=== PATIENT | male | born 1935 | race Caucasian/White ===

== ENCOUNTER → 2021-11-05 14:36 | Outpatient (CLI) | payer OTHER, SELFPAY ==
--- NOTE | ~2021-11-05 | US_ITS ---
EXAMINATION: US soft tissue groin LT DATE: 11/05/2021 15:13 INDICATION: Left inguinal pain and swelling. TECHNIQUE: Grayscale and Doppler ultrasound images of the left groin soft tissues were obtained. COMPARISON: CT abdomen and pelvis 12/13/2009. FINDINGS: Prior imaging demonstrated bilateral fat-containing inguinal hernias. Today's examination t here is a somewhat tubular appearing structure with dirty shadowing in the left inguinal area, likely representing bowel. Some motion is present with Valsalva but no significant change in appearance. IMPRESSION: 1. Bowel containing left inguinal hernia. Reviewed, dictated and finalized at location K.
== END ==
PROVIDERS: PCP Student in an Organized Health Care Education/Training Program; Visit Provider Student in an Organized Health Care Education/Training Program
DX: K40.90 Unilateral inguinal hernia, without obstruction or gangrene, not specified as recurrent (principal); R22.42 Localized swelling, mass and lump, left lower limb; K44.9 Diaphragmatic hernia without obstruction or gangrene
CPT/HCPCS: 76882

== ENCOUNTER 2024-02-01 10:07 | Emergency (ER) | payer OTHER, SELFPAY ==
--- NOTE | 2024-02-01 10:10 | ED.SOB ---
HPI - SOB/Dyspnea General Chief Complaint: Dizziness Stated Complaint: Shortness Of Breath/Dizziness Time Seen by Provider: 02/01/24 10:10 Source: patient Mode of arrival: ambulatory Limitations: no limitations History of Present Illness HPI Narrative: Miguel is an 88-year-old male patient presenting to the clinic today with complaints of shortness of breath and dizziness times. He reports Related Data Home Medications Medication Instructions Recorded Confirmed aspirin 325 mg tablet 325 mg PO DAILY 06/03/19 10/13/19 calcium phosphate 250 mg-vit D3 tablet PO 06/03/19 10/13/19 12.5 mcg (500 unit) chewable tablet (Citracal-D3 Gummies) magnesium oxide 500 mg PO DAILY 06/03/19 10/13/19 glucosamine dong dipot-chond dong 1 cap PO DAILY 10/13/19 10/13/19 sod-C-Mn 500 mg-400 mg-66 mg-3 mg cap Allergies Allergy/AdvReac Type Severity Reaction Status Date / Time Penicillins Allergy Intermediate Hives / Verified 02/01/24 10:18 Red Face Sulfa (Sulfonamide Allergy Intermediate Hives / Verified 02/01/24 10:18 Antibiotics) Red Face Review of Systems Review of Systems: Pertinent positives per HPI. Patient denies any fever, chills, rash, headache, visual changes, dizziness, cough, shortness of breath, chest pain, palpitations, nausea, vomiting, diarrhea, constipation, abdominal pain, or any urinary issues. 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 There is no relevant family history pertinent to the patient complaint. Exam Narrative: General: Well-developed, well nourished, in no apparent distress Head: Normocephalic, atraumatic Eyes: Pupils equally round and reactive to light bilaterally, EOM intact, sclera and conjunctive clear, no discharge, lids normal Ears: TMs intact and clear, ear canals clear, no drainage, grossly hearing normal. Nose: Nares patent, no discharge, no inflammation, no sinus tenderness. Mouth: Oral pharynx without lesions or masses, good dentition, MMM. Neck: Supple, trachea midline, no enlargement of anterior or posterior cervical nodes, no thyroid masses or goiter palpable. Cardio: Regular rate and rhythm, s1 and s2 normal, no murmur appreciated. Resp: Clear to auscultation bilaterally, no rhonchi, rales, wheezing or rubs Course Course Emergency Course: Portions of this record may have been created with voice recognition software. Level of Care: Express Care Visit Vital Signs Vital signs: Vital signs reviewed MDM - SOB/Dyspnea MDM Narrative Medical decision making narrative: At the time of visit patient is resting comfortably on the exam table. Patient appears to be nontoxic. Supportive measures were discussed with the patient and they voiced understanding discharge instructions and agrees to treatment plan. Return precautions reviewed Discharge Plan Discharge Instructions: Antibiotic Form Prescriptions: No Action glucosam dong [id number] mg capsule 1 cap PO DAILY aspirin 325 mg tablet 325 mg PO DAILY calcium phosphate-vitamin D3 [Citracal-D3 Gummies] 250 mg calcium- 500 unit tablet,chewable PO magnesium oxide 500 mg tablet 500 mg PO D
[2024-02-01 10:23] VITALS: BP 165/80; PULSE 74; RESP 16; TEMP 36.4; O2SAT 99
--- NOTE | 2024-02-01 10:36 | ECG_ITS ---
Test Date: 2024-02-01 10:43:55 Measurements Intervals [place] Rate: 68 P: -1 FL: 208 QRS: -14 QRSD: 93 T: 145 QT: 360 QTc: 385 Interpretive Statements SINUS RHYTHM LEFT VENTRICULAR HYPERTROPHY AND ST-T CHANGE [VOLTAGE CRITERIA PLUS ST/T ABNORMALITY] ABNORMAL ECG No previous ECG available for comparison Electronically Signed On 02-01-2024 12:36:45 CDT by Willard Webb M.D.
--- NOTE | 2024-02-01 10:39 | ED.DIZZY ---
HPI - Dizziness General Chief Complaint: Dizziness Stated Complaint: Shortness Of Breath/Dizziness Time Seen by Provider: 02/01/24 10:10 Source: patient Mode of arrival: ambulatory Limitations: no limitations History of Present Illness HPI Narrative: Miguel is an 88 year old male patient presenting to the clinic today with c/o lightheadedness since he woke up this morning. He reports he has had two episodes similar to this over the last month. Reports he took ASA the other two times and his symptoms improved however he took ASA today and he still feels off. When asked to explain the lightheadedness he stated that he feels sluggish and slow to move. Denies room spinning or loss of balance. History of Aortic murmur/CAD- sees Dr. Mota. Reports some tightness across his chest. He denies shortness of breath. B/P 165/80 today. Works out daily for an hour and half at the [employer]. He is a nonsmoker. Related Data Home Medications Medication Instructions Recorded Confirmed aspirin 325 mg tablet 325 mg PO DAILY 06/03/19 10/13/19 calcium phosphate 250 mg-vit D3 tablet PO 06/03/19 10/13/19 12.5 mcg (500 unit) chewable tablet (Citracal-D3 Gummies) magnesium oxide 500 mg PO DAILY 06/03/19 10/13/19 glucosamine dong dipot-chond dong 1 cap PO DAILY 10/13/19 10/13/19 sod-C-Mn 500 mg-400 mg-66 mg-3 mg cap Allergies Allergy/AdvReac Type Severity Reaction Status Date / Time Penicillins Allergy Intermediate Hives / Verified 02/01/24 10:18 Red Face Sulfa (Sulfonamide Allergy Intermediate Hives / Verified 02/01/24 10:18 Antibiotics) Red Face Review of Systems Review of Systems: Pertinent positives per HPI. Patient denies any fever, chills, rash, headache, visual changes, cough, runny nose, sore throat, shortness of breath, chest pain, palpitations, nausea, vomiting, diarrhea, constipation, abdominal pain, or any urinary issues. 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 There is no relevant family history pertinent to the patient complaint. Exam Narrative: General: Well-developed, overweight, in no apparent distress Head: Normocephalic, atraumatic Eyes: Pupils equally round and reactive to light bilaterally, EOM intact, sclera and conjunctive clear, no discharge, lids normal Ears: TMs intact and clear, ear canals clear, no drainage, grossly hearing normal. Nose: Nares patent, no discharge, no inflammation, no sinus tenderness. Mouth: Oropharynx without lesions or masses, good dentition, MMM. Tongue midline, even rise and fall of uvula Neck: Supple, trachea midline, no enlargement of anterior or posterior cervical nodes, no thyroid masses or goiter palpable. No carotid bruits Cardio: Regular rate and rhythm, s1 and s2 normal, aortic systolic murmur grade 3/6 appreciated. Resp: Clear to auscultation bilaterally anteriorly and posteriorly, no rhonchi, rales, wheezing or rubs Musculoskeletal: No deformity, non-tender to palpation, grossly normal range of motion, muscle strength strong and equal, peripheral pulse strong, no edema, no cyanosis, normal gait and station Neuro: Alert and oriented x4 with normal speech, no focal deficits, cranial
[2024-02-01 10:48] VITALS: BP 147/77; PULSE 68
[2024-02-01 10:52] VITALS: BP 147/83; BP 156/86; PULSE 71
[2024-02-01 10:53] LABS: Glucose Point of Care 113 mg/dl (65-105)
[2024-02-01 10:55] LABS: EDUAAPPEAR Clear; EDUABILI Negative; EDUABLOOD Negative; EDUACOLOR1 Yellow; EDUAGLUCOSE Negative; EDUAKETONE Negative; EDUALEUKO Negative; EDUANITRATE Negative; EDUAPROTEIN Negative; EDUAUROBILI 0.2
== END 2024-02-01 11:03 | disposition home or self-care (01) ==
PROVIDERS: Emergency Provider Nurse Practitioner Family; PCP Student in an Organized Health Care Education/Training Program
DX: R42 Dizziness and giddiness (principal); R94.31 Abnormal electrocardiogram [ECG] [EKG]; I35.8 Other nonrheumatic aortic valve disorders; I25.10 Atherosclerotic heart disease of native coronary artery without angina pectoris; I10 Essential (primary) hypertension; E78.5 Hyperlipidemia, unspecified; Z85.46 Personal history of malignant neoplasm of prostate; Z95.1 Presence of aortocoronary bypass graft
CPT/HCPCS: 81003; 82948; 93005; 99213; G0463

== ENCOUNTER 2024-02-01 15:27 | Emergency (ER) | payer OTHER, SELFPAY ==
--- NOTE | ~2024-02-01 | XR_ITS ---
EXAMINATION: XR chest 2V Exam Date/Time: 02/01/2024 16:10 CDT HISTORY: cp Comparison: 10/07/2013. RESULT: Lines, tubes, and devices: Intact sternotomy wires. Surgical clips over the left inferior sternum. Lungs and pleura: Low volumes with crowding, otherwise clear. Cardiomediastinal silhouette: Stable. Other: No acute osseous or upper abdominal finding. IMPRESSION: No acute cardiopulmonary process. Reviewed, dictated and finalized at location K.
--- NOTE | ~2024-02-01 | CT_ITS ---
EXAMINATION: CT abdomen pelvis w con DATE: 02/01/2024 22:54 INDICATION: epigastric pain TECHNIQUE: Computed tomography (CT) of the abdomen and pelvis was performed with 100 mL Omnipaque-350 intravenous contrast. Automated exposure control and iterative reconstruction technique were employe d. The dose-length product was 834.14 mGy-cm. COMPARISON: 12/13/2009. FINDINGS: Lower thorax: Aortic valve and coronary artery calcification. Liver: Normal. Biliary/Gallbladder: Gallbladder is normal. No bile duct dilation. Pancreas: Moderate fatty atrophy. Spleen: Normal. Adrenals:No mass. Kidneys: No suspicious mass, obstructing stone, or hydronephrosis. GI tract: Mild distal esophageal and gastric wall edema. No small or large bowel dilation. Appendix n ot visualized. Diverticulosis without diverticulitis. Mesentery/Peritoneum: No ascites, mass, or free air. Retroperitoneum: No mass. Atherosclerotic abdominal aortic and/or arterial calcifications. Pelvis: Prostate seeds. Unremarkable urinary bladder. Soft Tissues: Moderate bilateral uncomplicated appearing fat-containing inguinal hernias. Smoothly ma rginated, 1.8 cm cystic collection in the right inguinal canal with associated calcification, likely chronic and of doubtful clinical significance. Bones: No acute osseous finding. Multilevel moderate-severe degenerative disc disease. Grade 1 anter olisthesis at L4-5. IMPRESSION: Mild esophagitis/gastritis. Otherwise, no acute abdominopelvic process detected. Reviewed, dictated and finalized at location K.
[2024-02-01 15:58] VITALS: BP 139/67; PULSE 73; RESP 16; TEMP 36.7; O2SAT 98
--- NOTE | 2024-02-01 15:58 | ECG_ITS ---
Test Date: 2024-02-01 16:04:18 Measurements Intervals [place] Rate: 71 P: 35 ID: 224 QRS: -18 QRSD: 97 T: 123 QT: 371 QTc: 405 Interpretive Statements SINUS RHYTHM WITH FIRST DEGREE AV BLOCK LEFT VENTRICULAR HYPERTROPHY AND ST-T CHANGE [VOLTAGE CRITERIA PLUS ST/T ABNORMALITY] Compared to ECG 02/01/2024 10:43:55 NO SIGNIFICANT CHANGES Electronically Signed On 02-02-2024 08:50:41 CDT by Indiana Nielsen M.D.
[2024-02-01 16:20] LABS: Basophils Percent Auto 0.5 % (0.2-1.2); Eosinophils Absolute Auto 0.2 K/mm3 (0-0.3); Eosinophils Percent Auto 2.6 % (0-4.4); Hemoglobin 14.4 g/dL (14.0-18.0); Immature Granulocyte Absolute 0.01 K/mm3 (0.00-0.031); Immature Granulocyte Percent A 0.2 % (0-0.5); Immature Platelet Fraction Pct 2.3 % (0.9-11.2); Lymphocytes Absolute Auto 2.15 K/mm3 (0.9-3.2); Lymphocytes Percent Auto 37.4 % (18.3-44.2); Mean Corpuscular HGB Conc 35.1 g/dl (32-36); Mean Corpuscular Hemoglobin 33.6 pg (26-34); Mean Corpuscular Volume 95.8 fl (80-100); Mean Platelet Volume 9.4 fl (7.4-10.4); Monocytes Absolute Auto 0.6 K/mm3 (0.1-0.6); Monocytes Percent Auto 10.4 % (2.6-8.5); Neutrophils Absolute Auto 2.8 K/mm3 (1.3-6.7); Neutrophils Percent Auto 48.9 % (45.5-73.1); Platelet Count Result 134 k/mm3 (150-375); Red Blood Count 4.28 M/mm3 (4.6-6.20); Red Cell Distribution Width 12.6 % (11.5-14.5); White Blood Count 5.8 K/mm3 (4.5-10.0)
[2024-02-01 16:29] LABS: Alanine Aminotransferase 20 U/L (6-50); Albumin Level 4.2 g/dL (3.5-5.1); Alkaline Phosphatase 43 U/L (38-126); Anion Gap 9 mmol/L (4-12); Aspartate Amino Transferase 29 U/L (17-59); Bilirubin,Total 0.7 mg/dL (0.2-1.3); Blood Urea Nitrogen 16 mg/dL (9-20); Calcium 9.1 mg/dL (8.4-10.2); Carbon Dioxide 27 mmol/L (22-30); Chloride 101 mmol/L (98-107); Estimated CRCL calculation 56 ml/min; Estimated Glomerular Filt Rate > 60; Glucose 106 mg/dL (65-110); Lipase 45 U/L (23-300); Potassium 4.1 mmol/L (3.4-5.0); Sodium 137 mmol/L (137-145)
[2024-02-01 16:31] LABS: INR 0.9
[2024-02-01 16:32] LABS: Partial Thromboplastin Time 29.2 Seconds (22.3-36.8)
--- NOTE | 2024-02-01 17:01 | ED.CHESTPAIN ---
HPI - Chest Pain General Chief Complaint: Chest Pain <Emma Powell APRN - Last Filed: 02/03/24 17:00> Stated Complaint: cp and chest pressure <Emma Powell APRN - Last Filed: 02/03/24 17:00> Time Seen by Provider: 02/01/24 17:01 <Emma Powell APRN - Last Filed: 02/03/24 17:00> Focused HPI: Pt is a 88-year-old male who presents to the ER with chest pain/pressure. He reports he woke up around 0200 and didn't feel right. Pt took an aspirin, which provided him with no relief. He walked at the [facility] this morning and did NOT have increased pain with exertion. He went to urgent care this morning where an EKG was performed. They reported no concerns with his EKG so they discharged him to home. He called his drosser who advised him to go to the ER. Pt continues to have chest discomfort. GENERAL: Well-appearing, well-nourished, and in no acute distress. HEAD: Normocephalic, atraumatic. CHEST: Clear to auscultation. ?No respiratory distress. HEART: Regular rate and rhythm.? NEURO: ?Alert and oriented x3. Patient screened in triage and initial orders placed.? ?Additional care and disposition to be based upon?diagnostic testing and treatment. <Emma Powell APRN - Last Filed: 02/03/24 17:00> Source: patient <Emma Powell APRN - Last Filed: 02/03/24 17:00> Mode of arrival: ambulatory <Emma Powell APRN - Last Filed: 02/03/24 17:00> Limitations: no limitations <Emma Powell APRN - Last Filed: 02/03/24 17:00> Related Data Home Medications: Home Medications Medication Instructions Recorded Confirmed aspirin 325 mg tablet 325 mg PO DAILY 06/03/19 10/13/19 calcium phosphate 250 mg-vit D3 tablet PO 06/03/19 10/13/19 12.5 mcg (500 unit) chewable tablet (Citracal-D3 Gummies) magnesium oxide 500 mg PO DAILY 06/03/19 10/13/19 glucosamine dong dipot-chond dong 1 cap PO DAILY 10/13/19 10/13/19 sod-C-Mn 500 mg-400 mg-66 mg-3 mg cap <Emma Powell APRN - Last Filed: 02/03/24 17:00> Allergies/Adverse Reactions: Allergies Allergy/AdvReac Type Severity Reaction Status Date / Time Penicillins Allergy Intermediate Hives / Verified 02/01/24 10:18 Red Face Sulfa (Sulfonamide Allergy Intermediate Hives / Verified 02/01/24 10:18 Antibiotics) Red Face <Emma Powell APRN - Last Filed: 02/03/24 17:00> [facility] Past Medical History Medical History: Medical History (Updated 02/03/24 @ 00:01 by Dio John) CAD (coronary artery disease) Follows with Dr Dasilva Essential (primary) hypertension Hyperlipidemia Prostate cancer 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 <Emma Powell APRN - Last Filed: 02/03/24 17:00> Surgical History Surgical History: Surgical History Hx of CABG (~2007) Hx of tonsillectomy (~1945) <Emma Powell APRN - Last Filed: 02/03/24 17:00> Family History Family History: Family History Other Family history of cardiovascular disease <Emma Powell APRN - Last Filed: 02/03/24 17:00> Social History Social History: Social History Smoking status: Never smoker Alcohol intake: current <Emma Powell APRN - Last Filed: 02/03/24 17:00> Course Vital Signs Vital signs: Vital Signs Temperature 36.7 C 02/01/24 15:58 Pulse Rate 73 02/01/24 15:58 Respiratory Rate 16 02/01/24 15:58 Blood Pressure 139/67 02/01/24 15:58 Pulse Oximetry 98 02/01/24 15:58 Oxygen Delivery Room Air 02/01/24 15:58 Temperature 36.7 C 02/01/24 22:00 Pulse Rate 70 02/02/24 00:05 Respiratory Rate 12 02/02/24 00:05 Blood Pressure 140/82 02/02/24 00:05 Pulse Oximetry 97 02/02/24 00:05 Oxygen Delivery Room Air 02/01/24 19:49 <Emma Hess
[2024-02-01 17:14] LABS: Troponin I < 0.012 ng/mL (0.000-0.034)
[2024-02-01 19:49] VITALS: O2SAT 98
[2024-02-01 20:00] VITALS: BP 161/89; PULSE 69; RESP 12; O2SAT 99
--- NOTE | 2024-02-01 20:11 | ECG_ITS ---
Test Date: 2024-02-01 20:11:59 Measurements Intervals [place] Rate: 68 P: 25 NE: 245 QRS: -12 QRSD: 92 T: 118 QT: 386 QTc: 412 Interpretive Statements SINUS RHYTHM WITH FIRST DEGREE AV BLOCK LEFT VENTRICULAR HYPERTROPHY AND ST-T CHANGE [VOLTAGE CRITERIA PLUS ST/T ABNORMALITY] Compared to ECG 02/01/2024 16:04:18 No significant changes Electronically Signed On 02-02-2024 14:42:16 CDT by Indiana Nielsen M.D.
--- NOTE | 2024-02-01 20:15 | PC.NURSE ---
spoke with pharmacy about unscannable component of gi cocktail and am holding medication until I receive communication from the pharmacist
[2024-02-01 20:19] LABS: Troponin I 0.017 ng/mL (0.000-0.034)
[2024-02-01] MEDS: BELLADONNA ALK/PHENOB ELIX 10 ML, MAG HYDROX/ALUMINUM HYD/SIMETH 30 ML, LIDOCAINE HCL 2... PO (20:46)
[2024-02-01 21:00] VITALS: BP 142/82; PULSE 73; RESP 16; TEMP 36.6; O2SAT 99
[2024-02-01 22:00] VITALS: BP 141/75; PULSE 71; RESP 14; TEMP 36.7; O2SAT 97
--- NOTE | 2024-02-01 22:09 | ECG_ITS ---
Test Date: 2024-02-01 22:09:26 Measurements Intervals [place] Rate: 68 P: 23 MS: 248 QRS: -15 QRSD: 94 T: 124 QT: 380 QTc: 407 Interpretive Statements SINUS RHYTHM WITH FIRST DEGREE AV BLOCK LEFT VENTRICULAR HYPERTROPHY AND ST-T CHANGE [VOLTAGE CRITERIA PLUS ST/T ABNORMALITY] Compared to ECG 02/01/2024 20:11:59 No significant changes Electronically Signed On 02-02-2024 14:42:21 CDT by Indiana Nielsen M.D.
[2024-02-01 22:31] LABS: Troponin I < 0.012 ng/mL (0.000-0.034)
[2024-02-01 22:51] VITALS: BP 144/83; PULSE 71; RESP 14; O2SAT 96
[2024-02-02] MEDS: PANTOPRAZOLE SODIUM IV 40 MG VIAL IV PUSH (00:03)
[2024-02-02 00:05] VITALS: BP 140/82; PULSE 70; RESP 12; O2SAT 97
== END 2024-02-02 00:08 | disposition home or self-care (01) ==
PROVIDERS: Emergency Medicine; Emergency Provider Emergency Medicine; PCP Student in an Organized Health Care Education/Training Program
DX: K20.90 Esophagitis, unspecified without bleeding (principal); R07.89 Other chest pain; I25.10 Atherosclerotic heart disease of native coronary artery without angina pectoris; I10 Essential (primary) hypertension; E78.5 Hyperlipidemia, unspecified; Z85.46 Personal history of malignant neoplasm of prostate; Z95.1 Presence of aortocoronary bypass graft; Z79.82 Long term (current) use of aspirin; Z79.899 Other long term (current) drug therapy; I44.0 Atrioventricular block, first degree; I51.7 Cardiomegaly
CPT/HCPCS: 36415; 71046; 74177; 80053; 81003; 82948; 83690; 84484; 85025; 85055; 85610; 85730; 93005; 96374; 99284; A9270; J2470; Q9967

== ENCOUNTER 2024-04-21 00:24 | Day surgery (SDC) | payer OTHER, SELFPAY ==
[2024-04-13 13:27] VITALS: BMI 31.8
[2024-04-21 11:35] VITALS: BP 140/81; PULSE 68; RESP 18; TEMP 36.7; O2SAT 98
[2024-04-21] MEDS: LACTATED RINGERS 1,000 ML 150 ML IV CONT (11:45)
--- NOTE | 2024-04-21 12:19 | PM.HPGS ---
History of Present Illness History of Present Illness Consent: Risks, benefits, and alternatives have been discussed and questions answered. Patient agrees to proceed with procedure. Chief complaint: epigastric pain, abn findings on diag imaging Narrative: Miguel Mclean is a 88 year old male with recent ER visit because chest pain, cardiac work up was negative, CT scan showed mild gastritis, he is doing ok now, denies gerd symptoms, he is not taking ppi, never had egd Review of Systems Review of Systems: All systems reviewed & are unremarkable except as noted in HPI and below PMFSH Past Medical History Medical History (Updated 03/16/24 @ 11:10 by Zunilda Dacosta, DUC-C) CAD (coronary artery disease) Follows with Dr Dasilva Diverticulosis Epigastric pain Essential (primary) hypertension Hyperlipidemia Prostate cancer 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 Surgical History Surgical History Hx of CABG (~2007) Hx of tonsillectomy (~1945) Family History Family History Other Family history of cardiovascular disease Social History Social History Smoking status: Never smoker Alcohol intake: current Drinks per week: 6 Alcohol use details: glass of wine or beer nightly Substance use: never Substance use type: does not use Living arrangements: with family Spiritual care concerns: No Meds Home Medications and Allergies Home Medications Medication Instructions Recorded Confirmed Type aspirin 325 mg tablet 325 mg PO DAILY 06/03/19 04/21/24 History calcium 250 mg (phosphate)-vit D3 250 tablet PO DAILY 06/03/19 04/21/24 History 12.5 mcg (500 unit) chewable tablet (Citracal-D3 Gummies) magnesium oxide 500 mg PO DAILY 06/03/19 04/21/24 History atorvastatin 10 mg tablet See Rx Instructions .Route 06/11/20 04/21/24 Rx .COMPLEX #90 tabs glucosamine 750 [id number]-[id number]-[id number] 1 tablet PO BID 03/16/24 04/21/24 History no1 644 mg-C 30 mg-adonay 1 mg tablet losartan 25 mg tablet 25 mg PO DAILY 03/16/24 04/21/24 History sildenafil 100 mg tablet 100 mg PO DAILY PRN Sexual Activity 03/16/24 04/21/24 History vitamins B1 B6 B12 tablet 10 tablet PO DAILY 03/16/24 04/21/24 History carvedilol 3.125 mg tablet 3.125 mg PO BID 04/13/24 04/21/24 History Allergies Allergy/AdvReac Type Severity Reaction Status Date / Time Penicillins Allergy Intermediate Hives / Verified 04/21/24 11:34 Red Face Sulfa (Sulfonamide Allergy Intermediate Hives / Verified 04/21/24 11:34 Antibiotics) Red Face Vital Signs Vital Signs - 24 hr 04/21/24 11:35 Temperature 98.0 F Pulse Rate 68 Respiratory Rate 18 Blood Pressure 140/81 Pulse Oximetry 98 Oxygen Delivery Room Air Exam Const: General: comfortable and no acute distress HENMT: Face/Nose/Sinus: Normal nares present Eyes: General: appearance normal, both eyes and all related structures Neck: Neck: no JVD Resp: Auscultation: clear to auscultation bilaterally Cardio: Rate: regular rate Rhythm: regular rhythm GI: Inspection: non-distended GI Palp: Yes Soft to palpation Skin: General skin exam: normal color Neuro: General: gait normal Speech: normal speech Extrem: General: normal to inspection Psych: Mental Status: mental status grossly normal Assessment and Plan Assessment and plan (1) Epigastric pain: Code(s): R10.13 - Epigastric pain Status: Acute Assessment and Plan: egd asymptomatic now
--- NOTE | 2024-04-21 12:22 | P.PNAN_ITS ---
Anes - Initial Pre Proc Eval Procedure: Operation Date: 04/21/24 14:30 Proposed Procedures p Esophagogastroduodenoscopy - Giacomo Paige MD Date/Time: 04/21/24 12:22 Surgeon: Giacomo Paige MD Pre Op Diagnosis: epigastric pain, abn findings on diag imaging Patient Data Age: 88 Gender: M Height: 1.63 m Weight: 81.7 kg Last Vital Signs Temp 36.7 C 04/21/24 11:35 Pulse 68 04/21/24 11:35 Resp 18 04/21/24 11:35 BP 140/81 04/21/24 11:35 Pulse Ox 98 04/21/24 11:35 O2 Del Method Room Air 04/21/24 11:35 Allergies Allergy/AdvReac Type Severity Reaction Status Date / Time Penicillins Allergy Intermediate Hives / Verified 04/21/24 11:34 Red Face Sulfa (Sulfonamide Allergy Intermediate Hives / Verified 04/21/24 11:34 Antibiotics) Red Face Home Medications Medication Instructions Recorded Confirmed Type aspirin 325 mg tablet 325 mg PO DAILY 06/03/19 04/21/24 History calcium 250 mg (phosphate)-vit D3 250 tablet PO DAILY 06/03/19 04/21/24 History 12.5 mcg (500 unit) chewable tablet (Citracal-D3 Gummies) magnesium oxide 500 mg PO DAILY 06/03/19 04/21/24 History atorvastatin 10 mg tablet See Rx Instructions .Route 06/11/20 04/21/24 Rx .COMPLEX #90 tabs glucosamine 750 [id number]-[id number] 1 tablet PO BID 03/16/24 04/21/24 History no1 644 mg-C 30 mg-adonay 1 mg tablet losartan 25 mg tablet 25 mg PO DAILY 03/16/24 04/21/24 History sildenafil 100 mg tablet 100 mg PO DAILY PRN Sexual Activity 03/16/24 04/21/24 History vitamins B1 B6 B12 tablet 10 tablet PO DAILY 03/16/24 04/21/24 History carvedilol 3.125 mg tablet 3.125 mg PO BID 04/13/24 04/21/24 History Patient hx anesthesia problems: none Family hx anesthesia problems: none Results Review: All pre-operative results and documents have been reviewed as part of the pre- operative evaluation. 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 Surgical History Surgical History Hx of CABG (~2008) Hx of tonsillectomy (~1945) Family History Family History Other Family history of cardiovascular disease Social History Social History Smoking status: Never smoker Alcohol intake: current Drinks per week: 6 Alcohol use details: glass of wine or beer nightly Substance use: never Substance use type: does not use Living arrangements: with family Spiritual care concerns: No Anes - Eval Final PreProcedure Day of Procedure 04/21/24 12:22 Patient weight: obese Heart: regular rate and rhythm Lungs: clear to auscultation Airway: Mallampati scale class II Neurological: alert and oriented Last oral intake: >/= 8 hours ASA classification: III Emergent: no Anesthetic plan: proceed Anesthesia type and monitoring: general GIVS Results Review: All pre-operative results and documents have been reviewed as part of the pre- operative evaluation. Informed Consent: The patient's anesthetic plan and its attendant risks and benefits were discussed with the patient/family/POA. Questions were solicited and answers provided to the satisfaction of the patient/family/POA.
[2024-04-21 12:34] VITALS: BP 114/70; PULSE 69; RESP 16; O2SAT 96
[2024-04-21 12:44] VITALS: BP 119/66; PULSE 69; RESP 18; O2SAT 98
[2024-04-21 12:54] VITALS: BP 139/68; PULSE 68; RESP 20; O2SAT 98
[2024-04-21 13:35] LABS: HPYLORIRESULT Negative (Negative)
== END 2024-04-21 13:10 | disposition home or self-care (01) ==
PROVIDERS: PCP Student in an Organized Health Care Education/Training Program; Referring Provider Nurse Practitioner Family; Visit Provider Internal Medicine Gastroenterology
PROC: 0DJ08ZZ Inspection of Upper Intestinal Tract, Via Natural or Artificial Opening Endoscopic (ICD-10-PCS; CPT 43235; principal; 2024-04-21 14:30)
DX: R93.3 Abnormal findings on diagnostic imaging of other parts of digestive tract (principal); K21.00 Gastro-esophageal reflux disease with esophagitis, without bleeding; I25.10 Atherosclerotic heart disease of native coronary artery without angina pectoris; I10 Essential (primary) hypertension; E78.5 Hyperlipidemia, unspecified; E66.9 Obesity, unspecified; Z68.30 Body mass index [BMI] 30.0-30.9, adult; Z79.82 Long term (current) use of aspirin; Z98.890 Other specified postprocedural states; Z95.1 Presence of aortocoronary bypass graft; Z87.19 Personal history of other diseases of the digestive system; Z85.46 Personal history of malignant neoplasm of prostate; Z86.79 Personal history of other diseases of the circulatory system; Z82.49 Family history of ischemic heart disease and other diseases of the circulatory system
CPT/HCPCS: 43239; 87081; 88305; J2704; J7120

== ENCOUNTER 2024-11-24 13:19 | Outpatient (CLI) | payer OTHER, SELFPAY ==
--- NOTE | ~2024-11-24 | PE_ITS ---
EXAMINATION: PET_PETPSMAST_PT DATE: 11/24/2024 15:17 INDICATION: Prostate cancer TECHNIQUE: 5.397 mCi of Illucix Ga-68([id number]) was administered i.v. Low dose computed shelia graphy (CT) images were acquired from the base of the brain to the base of the brain to the proximal thighs for attenuation correction and anatomic localization. Positron emission tomography (PET) image s were acquired in the same distribution beginning 80 minutes after injection. Images including fused PET/CT images were reconstructed in axial, coronal, and sagittal planes. Automated exposure control technique was employed. The dose-length product was 975.63mGy-cm. COMPARISON: CT dated 02/01/2024 FINDINGS: Head/neck: Typical pattern of symmetric physiologic increased activity in the lacrimal, parotid and submandibula r glands as well as along the mucosa of the nasal and oral cavities, pharynx and hypopharynx. No path ologically enlarged cervical lymphadenopathy or suspicious foci of increased uptake in the visualized head or neck. Chest: Small lung volumes with mild bibasilar atelectasis. Small calcified nodules in the left upper lobe co nsistent with old granulomatous disease. No suspicious pulmonary nodules, pneumonia or pleural effusi on. Heart size normal. Atherosclerotic coronary artery calcifications. Median sternotomy wires. Aorti c valve calcification. No pericardial effusion. Thoracic aorta is normal in caliber. No pathologicall y enlarged or PSMA avid thoracic lymphadenopathy. Abdomen/pelvis/proximal thighs: Physiologic renal accumulation and excretion of activity in the kidneys, bladder and along portions o f ureters. Numerous brachytherapy seeds at the prostate. There is an approximately 1 cm focus of jas ed uptake at the superior right posterolateral aspect of the prostate with maximal SUV of 56.6 which is significantly higher than that of the excreted activity within the bladder where the maximal SUV i s 15.6] consistent with locally recurrent prostate cancer. Normal degree and slightly heterogenous pa ttern of increased uptake throughout the liver and spleen without radiologic correlate or dominant PS MA avid lesion. The gallbladder, pancreas and bilateral adrenal glands are normal. Moderate uptake sc attered throughout the bowels with typical duodenal and proximal jejunal predominance and without rad iologic correlate, also likely physiologic. Small bilateral fat-containing inguinal hernias, also con taining a minimal amount of fluid on the right. No other abnormal foci of increased uptake or patholo gically enlarged lymphadenopathy in the abdomen, pelvis or proximal thighs. Musculoskeletal: Severe spondylosis of the cervical, thoracic and lumbar spine. There are few chronic appearing compre ssion fractures in the mid to lower thoracic spine. No suspicious lytic, blastic or abnormally PSMA a vid bone lesions. IMPRESSION: 1. Multiple brachytherapy seeds in the prostate with small region of marked increased activity at the superior right posterolateral aspect of the prostate consistent with locally recurrent disease. No o ther more remote metastatic disease. Reviewed, dictated and finalized at location A. IMPRESSION: 1. Multiple brachytherapy seeds in the prostate with small region of marked inc reased activity at the superior right posterolateral aspect of the prostate con sistent with locally recurrent disease. No other more remote metastatic disease .
--- OUTSIDE RECORDS SUMMARY | 2024-11-24 13:59 | XMS_ITS | Encounter Summary ---
Author Organization [employer] [facility] Address 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 Fortunato Farrar MD [address] [place] [phone] Coronary Atherosclerosis of [place] Coronary Artery; Old Myocardial Infarction; Unspecified Essential Hypertension; Dyspepsia and Other Specified Disorders of Function of Stomach; Personal History of Other Malignant Neoplasm of Skin Social History Tobacco Use Types Packs/Day Years Used Date Smoking Tobacco: Never Assessed Sex and Gender Information Value Date Recorded Sex Assigned at Not on file 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 Gender Identity Not on file Sexual Orientation Not on file documented as of this encounter Plan of Treatment Not on file documented as of this encounter Procedures Procedure Name Priority Date/Time Associated Diagnosis Comments BASIC METABOLIC PANEL Timed Study 09/12/2007 6:34 AM CDT XR CHEST PA AND LATERAL 2 VW Routine 09/12/2007 5:15 AM CDT POC GLUCOSE Routine 09/11/2007 9:56 PM CDT POC GLUCOSE Routine 09/11/2007 4:49 PM CDT POC GLUCOSE Routine 09/11/2007 11:57 AM CDT POC GLUCOSE Routine 09/11/2007 7:02 AM CDT CBC WITH DIFFERENTIAL Routine 09/11/2007 5:02 AM CDT MAGNESIUM LEVEL Routine 09/11/2007 5:02 AM CDT BASIC METABOLIC PANEL Routine 09/11/2007 5:02 AM CDT POC GLUCOSE Routine 09/10/2007 8:07 PM CDT POC GLUCOSE Routine 09/10/2007 5:03 PM CDT POC GLUCOSE Routine 09/10/2007 11:19 AM CDT POC GLUCOSE Routine 09/10/2007 8:02 AM CDT XR CHEST PA OR AP 1 VW Stat 09/10/2007 7:30 AM CDT POC GLUCOSE Routine 09/10/2007 6:10 AM CDT XR CHEST PA OR AP 1 VW Timed Study 09/10/2007 5:20 AM CDT POC GLUCOSE Routine 09/10/2007 4:40 AM CDT CVR ONLY, CKMB/CK Timed Study 09/10/2007 4:3 0 AM CDT PT AND APTT Routine 09/10/2007 4:30 AM CDT CBC WITH DIFFERENTIAL Routine 09/10/2007 4:30 AM CDT COMPREHENSIVE METABOLIC PANEL Routine 09/10/2007 4:30 AM CDT POC GLUCOSE Routine 09/10/2007 3:43 AM CDT POC GLUCOSE Routine 09/10/2007 1:43 AM CDT POC GLUCOSE Routine 09/09/2007 11:53 PM CDT CVR ONLY, CKMB/CK Timed Study 09/09/2007 11: 00 PM CDT POC GLUCOSE Routine 09/09/2007 10:21 PM CDT POC GLUCOSE Routine 09/09/2007 9:01 PM CDT POC GLUCOSE Routine 09/09/2007 8:13 PM CDT POC GLUCOSE Routine 09/09/2007 6:58 PM CDT POC GLUCOSE Routine 09/09/2007 6:11 PM CDT POC GLUCOSE Routine 09/09/2007 5:05 PM CDT POC GLUCOSE Routine 09/09/2007 4:08 PM CDT POC GLUCOSE Routine 09/09/2007 3:09 PM CDT POTASSIUM LEVEL Timed Study 09/09/2007 3:03 PM CDT POC, BLOOD GASES Routine 09/09/2007 1:33 PM CDT POC GLUCOSE Routine 09/09/2007 12:09 PM CDT POC, BLOOD GASES Routine 09/09/2007 11:5 4 AM CDT CVR ONLY, CKMB/CK Stat 09/09/2007 11: 42 AM CDT PT AND APTT Stat 09/09/2007 11:42 AM CDT CBC WITH DIFFERENTIAL Stat 09/09/2007 11:42 AM CDT MAGNESIUM LEVEL Stat 09/09/2007 11:42 AM CDT BASIC METABOLIC PANEL Stat 09/09/2007 11:42 AM CDT XR CHEST PA OR AP 1 VW Stat 09/09/2007 11:40 AM CDT POC, BLOOD GASES Routine 09/09/2007 10:4 7 AM CDT POC, BLOOD GASES Routine 09/09/2007 10:2 2 AM CDT POC, BLOOD GASES Routine 09/09/2007 9:53 AM CDT POC, BLOOD GASES Routine 09/09/2007 9:27 AM CDT POC, BLOOD GASES Routine 09/09/2007 9:23 AM CDT XR CHEST PA AND LATERAL 2 VW Pre-Operative 09/03/2007 10:24 AM CDT PT AND APTT Routine 09/03/2007 10:05 AM CDT CBC WITH DIFFERENTIAL Routine 09/03/2007 10:05 AM CDT COMPREHENSIVE METABOLIC PANEL Routine 09/03/2007 10:05 AM CDT URINALYSIS WITH REFLEX CULTURE Routine 09/03/2007 9:48 AM CDT URINALYSIS W/REFLEX MICROSCOPIC Routine 09/03/2007 9:48 AM CDT documented in this encounter Results * (ABNORMAL) BASIC METABOLIC PANEL (09/12/2007 6:34 AM CDT) [facility] Signature CO2 26 22 - 30 mmol/L [facility] CREATININE 0.84 0.67 - 1.17 mg/dL [facility] POTASSIUM 4.1 3.5 - 4.9 mmol/L [facility] BUN 16 6 - 20 mg/dL [facility] CHLORIDE 102 96 - 108 mmol/L [facility] GLUCOSE 115(H) 65 - 99 mg/dL [facility] SODIUM 136 135 - 145 mmol/L [facility] CALCIUM 7.7(L) 8.4 - 10.2 mg/dL [facility] GFR, >60 >=60 mL/min/1. 7 sq meter [facility] GFR >60 >=60 mL/min/1. 7 sq meter [facility] Comment: Estimated GFR rate interpretative information for both Americans and non- Americans is available on the [facility] Intranet at: [email or web address] Select: Lab Policies and Procedures Select: Reference Ranges - GFR Blood specimen (specimen) 09/12/2007 6:34 AM CDT 09/12/2007 6:39 AM CDT Jon Yonug Jr., MD CHEMISTRY ORDERABLES Ed ited [facility] [address] [place] [address] * XR CHEST PA AND LATERAL (09/12/2007 5:15 AM CDT) Anatomical Region Laterality Modality Chest Other 09/12/2007 5:15 AM CDT Narrative 09/12/2007 10:18 AM CDT [facility] [place], [place] [address] [place], [place] [address] Admit Date: 09/09/2007 FRANCIS LINDA Sex: M Admit Prov: FORTUNATO FARRAR Date: 1935 Primary Care Prov: CMRN: [id number] Room: [address] [place] [address] SSN: [id number] IMAGING SERVICES Ordering Prov: N/A Accession Number: [id number] Interpretation CHEST 2 VIEWS, 09/12/2007 Comparison: 09/10/2007 History: Status post CABG, chest tube removed. Findings: PA and lateral views of the chest demonstrate minor residual bibasilar atelectasis and small left pleural effusion. The upper lung zones are clear. There is no pneumothorax seen. Impression: Small left pleural effusion and left basilar infiltrate versus atelectasis. Postoperative changes. . Dictated by: LAZARA HARVEY 09/12/2007 05:33 Electronically signed by: LAZARA HARVEY 09/12/2007 10:18 Transcribed: 09/12/2007 08:25 SJ Procedure Note Lazara Harvey - 09/12/2007 [facility] [place], [place] [address], [place] [address] Admit Date: 09/09/2007 ROGER LINDAMARY Ray Sex: M Admit Prov: FORTUNATO FARRAR Date: 1935 Primary Care Prov: CMRN: [id number] Room: [address] [place] [address] SSN: [id number] IMAGING SERVICES Ordering Prov: N/A Interpretation CHEST 2 VIEWS, 09/12/2007 Comparison: 09/10/2007 History: Status post CABG, chest tube removed. Findings: PA and lateral views of the chest demonstrate minorresidual bibasilar atelectasis and small left pleural effusion. The upper lungzones are clear. There is no pneumothorax seen. Impression: Small left pleural effusion and left basilar infiltrate versusatelectasis. Postoperative changes. . Dictated by: LAZARA HARVEY 09/12/2007 05:33 Electronically signed by: LAZARA HARVEY 09/12/2007 10:18 Transcribed: 09/12/2007 08:25 SJ Fortunato Farrar MD DIAGNOSTIC IMAGING ORDERABLES Final Result * (ABNORMAL) POC GLUCOSE (09/11/2007 9:56 PM CDT) GLUCOSE POC 160(H) 65 - 99 mg/dL [facility] Venous blood specimen (specimen) 09/11/2007 9:56 PM CDT 09/11/2007 9:56 PM CDT Fortunato Farrar MD POINT OF CARE TESTING Final Re sult Performing Organization Address City/State/[facility] Co de Phone Number [facility] [address] [place] [address] * (ABNORMAL) POC GLUCOSE (09/11/2007 4:49 PM CDT) GLUCOSE POC 131(H) 65 - 99 mg/dL [facility] Venous blood specimen (specimen) 09/11/2007 4:49 PM CDT 09/11/2007 4:49 PM CDT us Fortunato Farrar MD POINT OF CARE TESTING Final Re sult Performing Organization Address [facility] Co de Phone Number [facility] [address] [place] [address] * (ABNORMAL) POC GLUCOSE (09/11/2007 11:57 AM CDT) GLUCOSE POC 140(H) 65 - 99 mg/dL [facility] Venous blood specimen (specimen) 09/11/2007 11:57 AM CDT 09/11/2007 11:57 AM CDT us Fortunato Farrar MD POINT OF CARE TESTING Final Re sult Performing Organization Address [facility] Co de Phone Number [facility] [address] [place] [address] * (ABNORMAL) POC GLUCOSE (09/11/2007 7:02 AM CDT) GLUCOSE POC 148(H) 65 - 99 mg/dL [facility] Venous blood specimen (specimen) 09/11/2007 7:02 AM CDT 09/11/2007 7:02 AM CDT us Fortunato Farrar MD POINT OF CARE TESTING Final Re sult Performing Organization Address [facility]/ZIP Co de Phone Number [facility] [address] [place] [address] * (ABNORMAL) BASIC METABOLIC PANEL (09/11/2007 5:02 AM CDT) BUN 18 6 - 20 mg/dL [facility] CHLORIDE 102 96 - 108 mmol/L [facility] GLUCOSE 127(H) 65 - 99 mg/dL [facility] SODIUM 134(L) 135 - 145 mmol/L [facility] CALCIUM 7.9(L) 8.4 - 10.2 mg/dL [facility] CO2 25 22 - 30 mmol/L [facility] CREATININE 1.00 0.67 - 1.17 mg/dL [facility] POTASSIUM 4.1 3.5 - 4.9 mmol/L [facility] GFR, >60 >=60 mL/min/1. 7 sq meter [facility] GFR >60 >=60 mL/min/1. 7 sq meter [facility] Comment: Estimated GFR rate interpretative information for both Americans and non- Americans is available on the [facility] Intranet at: [email or web address] Select: Lab Policies and Procedures Select: Reference Ranges - GFR Blood specimen (specimen) 09/11/2007 5:02 AM CDT 09/11/2007 5:22 AM CDT us Fortunato Farrar MD CHEMISTRY ORDERABLES Edited [facility] [address] [place] [address] * MAGNESIUM LEVEL (09/11/2007 5:02 AM CDT) MAGNESIUM 2.1 1.5 - 2.5 mg/dL [facility] Blood specimen (specimen) 09/11/2007 5:02 AM CDT 09/11/2007 5:22 AM CDT us Fortunato Farrar MD CHEMISTRY ORDERABLES Final Res ult [facility] [address] [place] [address] * (ABNORMAL) CBC WITH DIFFERENTIAL (09/11/2007 5:02 AM CDT) HEMATOCRIT 36.1(L) 40.0 - 48.0 % [facility] RDW-STDEV 45.7 37.1 - 48.7 fL [facility] RBC 3.86(L) 4.50 - 5.40 M/uL [facility] MCHC 33.8 31.5 - 35.5 % [facility] MCV 93.5 82.0 - 99.0 fL [facility] PLATELETS 90(L) 140 - 350 K/uL [facility] HEMOGLOBIN 12.2(L) 13.6 - 16.5 g/dL [facility] RDW 13.5 11.5 - 14.5 % [facility] WBC 10.8(H) 4.0 - 9.8 K/uL [facility] MCH 31.6 27.2 - 32.6 pg [facility] MPV 9.9 9.3 - 12.4 fL [facility] NEUTROPHILS 73(H) 45 - 70 % [facility] NEUTROPHIL ABSOLUTE 7.93(H) 1.90 - 7.00 K/uL [facility] EOSINOPHILS 0 0 - 7 % [facility] EOSINOPHIL ABSOLUTE 0.03 0.00 - 0.70 K/uL [facility] LYMPHOCYTES 16 16 - 45 % [facility] LYMPHOCYTE ABSOLUTE 1.68 0.70 - 4.50 K/uL [facility] BASOPHILS 0 0 - 2 % [facility] BASOPHILS ABSOLUTE 0.02 0.00 - 0.20 K/uL [facility] MONOCYTES 11 3 - 13 % [facility] MONOCYTE ABSOLUTE 1.18 0.10 - 1.30 K/uL [facility] Blood specimen (specimen) 09/11/2007 5:02 AM CDT 09/11/2007 5:22 AM CDT us Fortnuato Farrar MD HEMATOLOGY ORDERABLES Edited Performing Organization Address City/[facility] Co de Phone Number INTERFACE SYSTEM Refer to clinic/hospital department [facility] [address] [place] [address] * (ABNORMAL) POC GLUCOSE (09/10/2007 8:07 PM CDT) GLUCOSE POC 155(H) 65 - 99 mg/dL [facility] Venous blood specimen (specimen) 09/10/2007 8:07 PM CDT 09/10/2007 8:07 PM CDT us Fortunato Farrar MD POINT OF CARE TESTING Final Re sult Performing Organization Address [facility] Co de Phone Number [facility] [address] [place] [address] * (ABNORMAL) POC GLUCOSE (09/10/2007 5:03 PM CDT) GLUCOSE POC 140(H) 65 - 99 mg/dL [facility] Venous blood specimen (specimen) 09/10/2007 5:03 PM CDT 09/10/2007 5:03 PM CDT us Fortunato Farrar MD POINT OF CARE TESTING Final Re sult Performing Organization Address City/[facility] Co de Phone Number [facility] [address] [place] [address] * (ABNORMAL) POC GLUCOSE (09/10/2007 11:19 AM CDT) GLUCOSE POC 140(H) 65 - 99 mg/dL [facility] Venous blood specimen (specimen) 09/10/2007 11:19 AM CDT 09/10/2007 11:19 AM CDT us Fortunato Farrar MD POINT OF CARE TESTING Final Re sult Performing Organization Address [facility] Co de Phone Number [facility] [address] [place] [address] * (ABNORMAL) POC GLUCOSE (09/10/2007 8:02 AM CDT) GLUCOSE POC 133(H) 65 - 99 mg/dL [facility] Venous blood specimen (specimen) 09/10/2007 8:02 AM CDT 09/10/2007 8:02 AM CDT us Fortunato Farrar MD POINT OF CARE TESTING Final Re sult Performing Organization Address City/[facility] Co de Phone Number [facility] [address] [place] [address] * XR CHEST PA OR AP (09/10/2007 7:30 AM CDT) Anatomical Region Laterality Modality Chest Other 09/10/2007 7:30 AM CDT Narrative 09/10/2007 12:33 PM CDT [facility] [place], [place] [address] [place], [place] [address] Admit Date: 09/09/2007 FRANCIS LINDA Sex: M Admit Prov: FORTUNATO FARRAR Date: 1935 Primary Care Prov: CMRN: [id number] Room: [address] [place] [address] SSN: [id number] IMAGING SERVICES Ordering Prov: N/A Accession Number: [id number] Interpretation PORTABLE AP UPRIGHT CHEST OF 0740 HOURS, 09/10/2007 History: Coronary artery disease. Findings: Since the previous examination of September 09 earlier, the Sutter-Rachelle catheter has been removed. The left chest tube remains unchanged and in expected position. There is no pneumothorax. The left lung is better aerated with mild residual left basilar atelectasis. No pneumothorax is seen. The heart size is mildly enlarged. Opinion: Interval improvement. . Dictated by: JENNIFER SCHWAB 09/10/2007 08:40 Electronically signed by: JENNIFER SCHWAB 09/10/2007 12:33 Transcribed: 09/10/2007 11:32 SMM Procedure Note Jennifer Schwab MD - 09/10/[address] [address] Admit Date: 09/09/2007 FRANCIS LINDA Sex: M Admit Prov: FORTUNATO FARRAR Date: 1935 Primary Care Prov: CMRN: [id number] Room: [address] [place] [address] SSN: [id number] IMAGING SERVICES Ordering Prov: N/A Interpretation PORTABLE AP UPRIGHT CHEST OF 0740 HOURS, 09/10/2007 History: Coronary artery disease. Findings: Since the previous examination of September 09 earlier, theSwan-Rachelle catheter has been removed. The left chest tube remains unchanged andin expected position. There is no pneumothorax. The left lung isbetter aerated with mild residual left basilar atelectasis. No pneumothoraxis seen. The heart size is mildly enlarged. Opinion: Interval improvement. . Dictated by: JENNIFER SCHWAB 09/10/2007 08:40 Electronically signed by: JENNIFER SCHWAB 09/10/2007 12:33 Transcribed: 09/10/2007 11:32 SMM Fortunato Farrar MD DIAGNOSTIC IMAGING ORDERABLES Final Result * (ABNORMAL) POC GLUCOSE (09/10/2007 6:10 AM CDT) GLUCOSE POC 133(H) 65 - 99 mg/dL [facility] Venous blood specimen (specimen) 09/10/2007 6:10 AM CDT 09/10/2007 6:10 AM CDT Fortunato Farrar MD POINT OF CARE TESTING Final Re sult [facility] [address] [place] [address] * XR CHEST PA OR AP (09/10/2007 5:20 AM CDT) Anatomical Region Laterality Modality Chest Other 09/10/2007 5:20 AM CDT Narrative 09/10/2007 11:03 AM CDT [facility] [place] [place] [address] [place], [place] [address] Admit Date: 09/09/2007 FRANCIS LINDA Sex: M Admit Prov: FORTUNATO FARRAR Date: 1935 Primary Care Prov: CMRN: [id number] Room: [address] [place] [address] SSN: [id number] IMAGING SERVICES Ordering Prov: N/A Accession Number: [id number] Interpretation Clinical Indication: 71-year-old man status post CABG. REPORT: BEDSIDE PORTABLE CHEST RADIOGRAPH, 09/10/2007 AT 0520 HOURS Comparisons: 09/09/07 at 1150 hours. Findings: Since the prior exam, endotracheal tube and nasogastric tube have been removed. Sutter-Rachelle catheter terminates within the right lower lobe pulmonary artery outflow tract. Mediastinal drains and left chest tube are stable. No pneumothorax is seen. Left basilar atelectasis or infiltrate is again noted and appears slightly worse. The cardiomediastinal silhouette is stable in size. There is atherosclerosis of the aorta. Minimal right basilar subsegmental atelectasis is seen. Lung volumes are slightly decreased from the prior exam. Impression: 1. Interval removal of endotracheal tube and nasogastric tube. 2. Increasing bibasilar subsegmental atelectasis or infiltrate, (left greater than right). . Dictated by: DAVID CARLSON 09/10/2007 07:51 Electronically signed by: DAVID CARLSON 09/10/2007 11:03 Transcribed: 09/10/2007 10:59 SMM Procedure Note Provider, Historical - 09/10/2007 [facility] [place], [place] [address] [place], [place] [address] Admit Date: 09/09/2007 ROGER LINDAMARY Ray Sex: M Admit Prov: JDFORTUNATO CLAYTON Date: 1935 Primary Care Prov: CMRN: [id number] Room: [address] [place] [address] SSN: [id number] IMAGING SERVICES Ordering Prov: N/A Interpretation Clinical Indication: 71-year-old man status post CABG. REPORT: BEDSIDE PORTABLE CHEST RADIOGRAPH, 09/10/2007 AT 0520 HOURS Comparisons: 09/09/07 at 1150 hours. Findings: Since the prior exam, endotracheal tube and nasogastrictube have been removed. Sutter-Rachelle catheter terminates within the right lowerlobe pulmonary artery outflow tract. Mediastinal drains and left chesttube are stable. No pneumothorax is seen. Left basilar atelectasis orinfiltrate is again noted and appears slightly worse. The cardiomediastinalsilhouette is stable in size. There is atherosclerosis of the aorta. Minimalright basilar subsegmental atelectasis is seen. Lung volumes are slightly decreased from the prior exam. Impression: 1. Interval removal of endotracheal tube and nasogastric tube. 2. Increasing bibasilar subsegmental atelectasis or infiltrate,(left greater than right). . Dictated by: DAVID CARLSON 09/10/2007 07:51 Electronically signed by: DAVID CARLSON 09/10/2007 11:03 Transcribed: 09/10/2007 10:59 SMM Fortunato Farrar MD DIAGNOSTIC IMAGING ORDERABLES Final Result * (ABNORMAL) POC GLUCOSE (09/10/2007 4:40 AM CDT) GLUCOSE POC 104(H) 65 - 99 mg/dL [facility] Venous blood specimen (specimen) 09/10/2007 4:40 AM CDT 09/10/2007 4:40 AM CDT Fortunato Farrar MD POINT OF CARE TESTING Final Re sult [facility] [address] [place] [address] * (ABNORMAL) PT AND APTT (09/10/2007 4:30 AM CDT) PTT 32.1 24.4 - 36.4 Seconds [facility] Comment: PTT Therapeutic Range: Heparin Level PTT (seconds) <0.10 units/mL <53 0.10 - 0.30 units/mL 53 - 67 0.30 - 0.70 units/mL* 67 - 95* 0.70 - 1.00 units/mL 95 - 116 *corresponds to therapeutic range for unfractionated heparin PROTIME 14.9 12.7 - 15.1 Seconds [facility] INR 1.2(H) 0.9 - 1.1 [facility] Comment: INR Therapeutic Range: Adult: 2.0 - 3.0 for pulmonary embolism or prophylaxis against venous thrombosis or systemic embolization. 2.0 - 3.0 for patients with tissue heart valves. 2.5 - 3.5 for patients with mechanical heart valves or post [place]. Pediatric (12 years and under): 1.5 - 3.0 Although the target range in children is not well established, INR values of 1.5 - 3.0 are recommended for most patients. Higher values have been used in children with prosthetic cardiac valves and hereditary clotting disorders. (<3 days) therapeutic ranges have not been established. Blood specimen (specimen) 09/10/2007 4:30 AM CDT 09/10/2007 4:41 AM CDT Fortunato Farrar MD HEMATOLOGY ORDERABLES Edited Performing Organization Address [facility]/ZIP Co de Phone Number [facility] [address] [place] [address] * (ABNORMAL) CBC WITH DIFFERENTIAL (09/10/2007 4:30 AM CDT) MCH 31.5 27.2 - 32.6 pg [facility] MPV 9.6 9.3 - 12.4 fL [facility] HEMATOCRIT 38.4(L) 40.0 - 48.0 % [facility] RDW-STDEV 44.6 37.1 - 48.7 fL [facility] RBC 4.16(L) 4.50 - 5.40 M/uL [facility] MCHC 34.1 31.5 - 35.5 % [facility] MCV 92.3 82.0 - 99.0 fL [facility] PLATELETS 96(L) 140 - 350 K/uL [facility] HEMOGLOBIN 13.1(L) 13.6 - 16.5 g/dL [facility] RDW 13.5 11.5 - 14.5 % [facility] WBC 10.7(H) 4.0 - 9.8 K/uL [facility] NEUTROPHILS 74(H) 45 - 70 % [facility] NEUTROPHIL ABSOLUTE 7.92(H) 1.90 - 7.00 K/uL [facility] EOSINOPHILS 0 0 - 7 % [facility] EOSINOPHIL ABSOLUTE 0.00 0.00 - 0.70 K/uL [facility] LYMPHOCYTES 14(L) 16 - 45 % [facility] LYMPHOCYTE ABSOLUTE 1.49 0.70 - 4.50 K/uL [facility] BASOPHILS 0 0 - 2 % [facility] BASOPHILS ABSOLUTE 0.01 0.00 - 0.20 K/uL [facility] MONOCYTES 12 3 - 13 % [facility] MONOCYTE ABSOLUTE 1.28 0.10 - 1.30 K/uL [facility] Blood specimen (specimen) 09/10/2007 4:30 AM CDT 09/10/2007 4:41 AM CDT us Fortunato Farrar MD HEMATOLOGY ORDERABLES Edited INTERFACE SYSTEM Refer to clinic/hospital department [facility] [id number] [place] [id number] * (ABNORMAL) COMPREHENSIVE METABOLIC PANEL (09/10/2007 4:30 AM CDT) CALCIUM 7.4(L) 8.4 - 10.2 mg/dL [facility] ALBUMIN 3.1(L) 3.4 - 4.8 g/dL [facility] CHLORIDE 108 96 - 108 mmol/L [facility] CREATININE 0.91 0.67 - 1.17 mg/dL [facility] ALT 22 0 - 41 U/L [facility] SODIUM 138 135 - 145 mmol/L [facility] ALKALINE PHOSPHATASE 27(L) 40 - 129 U/L [facility] CO2 28 22 - 30 mmol/L [facility] BILIRUBIN TOTAL 0.6 0.2 - 1.0 mg/dL [facility] POTASSIUM 4.0 3.5 - 4.9 mmol/L [facility] TOTAL PROTEIN 4.9(L) 6.3 - 8.6 g/dL [facility] GLUCOSE 113(H) 65 - 99 mg/dL [facility] AST 41(H) 12 - 38 U/L [facility] BUN 15 6 - 20 mg/dL [facility] GFR, >60 >=60 mL/min/1. 7 sq meter [facility] GFR >60 >=60 mL/min/1. 7 sq meter [facility] Comment: Estimated GFR rate interpretative information for both Americans and non- Americans is available on the [facility] Intranet at: [email or web address] Select: Lab Policies and Procedures Select: Reference Ranges - GFR Blood specimen (specimen) 09/10/2007 4:30 AM CDT 09/10/2007 4:41 AM CDT Fortunato Farrar MD CHEMISTRY ORDERABLES Edited Performing Organization Address [facility] Co de Phone Number [facility] [address] [place] [address] * (ABNORMAL) CVR ONLY, CKMB/CK (09/10/2007 4:30 AM CDT) CKMB 13.5(AA) <=6.7 ng/mL [facility] Comment:Persistent abnormal result CKMB INTERP See Below [facility] Comment:Elevated CKMB,Consis tent with Myocardial Injury CK 425(H) 10 - 170 U/L [facility] CARDIAC RELATIVE INDEX 3.2 <=4.0 [facility] Blood specimen (specimen) 09/10/2007 4:30 AM CDT 09/10/2007 4:41 AM CDT Fortunato Farrar MD CHEMISTRY ORDERABLES Edited Performing Organization Address [facility] Co de Phone Number [facility] [address] [place] [address] * (ABNORMAL) POC GLUCOSE (09/10/2007 3:43 AM CDT) GLUCOSE POC 119(H) 65 - 99 mg/dL [facility] Venous blood specimen (specimen) 09/10/2007 3:43 AM CDT 09/10/2007 3:43 AM CDT Fortunato Farrar MD POINT OF CARE TESTING Final Re sult Performing Organization Address [facility]/ZIP Co de Phone Number [facility] [address] [place] [address] * (ABNORMAL) POC GLUCOSE (09/10/2007 1:43 AM CDT) GLUCOSE POC 137(H) 65 - 99 mg/dL [facility] Venous blood specimen (specimen) 09/10/2007 1:43 AM CDT 09/10/2007 1:43 AM CDT Fortunato Farrar MD POINT OF CARE TESTING Final Re sult Performing Organization Address [facility] Co de Phone Number [facility] [address] [place] [address] * (ABNORMAL) POC GLUCOSE (09/09/2007 11:53 PM CDT) GLUCOSE POC 147(H) 65 - 99 mg/dL [facility] Venous blood specimen (specimen) 09/09/2007 11:53 PM CDT 09/09/2007 11:53 PM CDT Fortunato Farrar MD POINT OF CARE TESTING Final Re sult Performing Organization Address [facility] Co de Phone Number [facility] [address] [place] [address] * (ABNORMAL) CVR ONLY, CKMB/CK (09/09/2007 11:00 PM CDT) CKMB 17.0(AA) <=6.7 ng/mL [facility] Comment:Persistent abnormal result CKMB INTERP See Below [facility] Comment:Elevated CKMB,Consis tent with Myocardial Injury CK 456(H) 10 - 170 U/L [facility] CARDIAC RELATIVE INDEX 3.7 <=4.0 [facility] Blood specimen (specimen) 09/09/2007 11:00 PM CDT 09/10/2007 12:11 AM CDT us Fortunato Farrar MD CHEMISTRY ORDERABLES Edited Performing Organization Address City/[facility]/ZIP Co de Phone Number [facility] [address] [place] [address] * (ABNORMAL) POC GLUCOSE (09/09/2007 10:21 PM CDT) GLUCOSE POC 149(H) 65 - 99 mg/dL [facility] Venous blood specimen (specimen) 09/09/2007 10:21 PM CDT 09/09/2007 10:21 PM CDT us Fortunato Farrar MD POINT OF CARE TESTING Final Re sult Performing Organization Address [facility] Co de Phone Number [facility] [address] [place] [address] * (ABNORMAL) POC GLUCOSE (09/09/2007 9:01 PM CDT) GLUCOSE POC 131(H) 65 - 99 mg/dL [facility] Venous blood specimen (specimen) 09/09/2007 9:01 PM CDT 09/09/2007 9:01 PM CDT us Fortunato Farrar MD POINT OF CARE TESTING Final Re sult Performing Organization Address City/[facility]/ZIP Co de Phone Number [facility] [address] [place] [address] * (ABNORMAL) POC GLUCOSE (09/09/2007 8:13 PM CDT) GLUCOSE POC 153(H) 65 - 99 mg/dL [facility] Venous blood specimen (specimen) 09/09/2007 8:13 PM CDT 09/09/2007 8:13 PM CDT us Fortunato Farrar MD POINT OF CARE TESTING Final Re sult Performing Organization Address [facility] Co de Phone Number [facility] [address] [place] [address] * (ABNORMAL) POC GLUCOSE (09/09/2007 6:58 PM CDT) GLUCOSE POC 140(H) 65 - 99 mg/dL [facility] Venous blood specimen (specimen) 09/09/2007 6:58 PM CDT 09/09/2007 6:58 PM CDT us Fortunato Farrar MD POINT OF CARE TESTING Final Re sult Performing Organization Address [facility] Co de Phone Number [facility] [address] [place] [address] * (ABNORMAL) POC GLUCOSE (09/09/2007 6:11 PM CDT) GLUCOSE POC 150(H) 65 - 99 mg/dL [facility] Venous blood specimen (specimen) 09/09/2007 6:11 PM CDT 09/09/2007 6:11 PM CDT us Fortunato Farrar MD POINT OF CARE TESTING Final Re sult Performing Organization Address [facility] Co de Phone Number [facility] [address] [place] [address] * (ABNORMAL) POC GLUCOSE (09/09/2007 5:05 PM CDT) GLUCOSE POC 127(H) 65 - 99 mg/dL [facility] Venous blood specimen (specimen) 09/09/2007 5:05 PM CDT 09/09/2007 5:05 PM CDT us Fortunato Farrar MD POINT OF CARE TESTING Final Re sult Performing Organization Address [facility] de Phone Number [facility] [address] [place] [address] * (ABNORMAL) POC GLUCOSE (09/09/2007 4:08 PM CDT) GLUCOSE POC 144(H) 65 - 99 mg/dL [facility] Venous blood specimen (specimen) 09/09/2007 4:08 PM CDT 09/09/2007 4:08 PM CDT us Fortunato Farrar MD POINT OF CARE TESTING Final Re sult Performing Organization Address [facility][1] de Phone Number [facility] [address] [place] [address] * (ABNORMAL) POC GLUCOSE (09/09/2007 3:09 PM CDT) GLUCOSE POC 144(H) 65 - 99 mg/dL [facility] Venous blood specimen (specimen) 09/09/2007 3:09 PM CDT 09/09/2007 3:09 PM CDT us Fortunato Farrar MD POINT OF CARE TESTING Final Re sult Performing Organization Address [facility] de Phone Number [facility] [address] [place] [address] * POTASSIUM LEVEL (09/09/2007 3:03 PM CDT) POTASSIUM 4.8 3.5 - 4.9 mmol/L [facility] Blood specimen (specimen) 09/09/2007 3:03 PM CDT 09/09/2007 3:13 PM CDT us Fortunato Farrar MD CHEMISTRY ORDERABLES Final Res ult Performing Organization Address [facility] Co de Phone Number [facility] [address] [place] [address] * (ABNORMAL) POC RT, BLOOD GASES (09/09/2007 1:33 PM CDT) BASE EXCESS ABG -3.4(L) -2.0 - 3.0 mmol/L [facility] COMMENT, GASES POC PA NOTIFIED [facility] HEMATOCRIT POC 40.0 40.0 - 48.0 % [facility] O2 SAT EST ABG POC 99 95 - 99 % [facility] POTASSIUM POC 4.5 3.5 - 4.9 mmol/L [facility] PCO2 ARTERIAL 44 35 - 48 mm Hg [facility] FIO2 35 [facility] PH ARTERIAL 7.32(L) 7.35 - 7.45 [facility] HCO3 ARTERIAL 23 22 - 26 mmol/L [facility] PATIENT'S TEMPERATURE 37.0 Degree C [facility] CALICUM IONIZED, WHOLE BLOOD 4.53(L) 4.76 - 5.16 mg/dL [facility] PEEP POC 5 [facility] PO2 ARTERIAL 127(H) 83 - 108 mm Hg [facility] SODIUM POC 132(L) 135 - 145 mmol/L [facility] OXYGEN MODE SI/PS 8 [facility] Blood specimen (specimen) 09/09/2007 1:33 PM CDT 09/09/2007 1:33 PM CDT us Fortunato Farrar MD CHEMISTRY ORDERABLES Final Res ult [facility] [address] [place] [address] * (ABNORMAL) POC GLUCOSE (09/09/2007 12:09 PM CDT) GLUCOSE POC 109(H) 65 - 99 mg/dL [facility] Venous blood specimen (specimen) 09/09/2007 12:09 PM CDT 09/09/2007 12:09 PM CDT Fortunato Farrar MD POINT OF CARE TESTING Final Re sult [facility] [address] [place] [address] * (ABNORMAL) POC RT, BLOOD GASES (09/09/2007 11:54 AM CDT) [facility] O2 SAT EST ABG POC 99 95 - 99 % [facility] POTASSIUM POC 4.6 3.5 - 4.9 mmol/L [facility] PCO2 ARTERIAL 44 35 - 48 mm Hg [facility] FIO2 60 [facility] HCO3 ARTERIAL 22 22 - 26 mmol/L [facility] PATIENT'S TEMPERATURE 37.0 Degree C [facility] CALICUM IONIZED, WHOLE BLOOD 4.93 4.76 - 5.16 mg/dL [facility] PEEP POC 5 [facility] PO2 ARTERIAL 130(H) 83 - 108 mm Hg [facility] SODIUM POC 133(L) 135 - 145 mmol/L [facility] OXYGEN MODE SI/PSV 8 [facility] PH ARTERIAL 7.31(L) 7.35 - 7.45 [facility] BASE EXCESS ABG -4.0(L) -2.0 - 3.0 mmol/L [facility] COMMENT, GASES POC PA AWARE [facility] HEMATOCRIT POC 36.0(L) 40.0 - 48.0 % [facility] Blood specimen (specimen) 09/09/2007 11:54 AM CDT 09/09/2007 11:54 AM CDT Fortunato Farrar MD CHEMISTRY ORDERABLES Final Res ult [facility] [address] [place] [address] * (ABNORMAL) PT AND APTT (09/09/2007 11:42 AM CDT) INR 1.3(H) 0.9 - 1.1 [facility] Comment: INR Therapeutic Range: Adult: 2.0 - 3.0 for pulmonary embolism or prophylaxis against venous thrombosis or systemic embolization. 2.0 - 3.0 for patients with tissue heart valves. 2.5 - 3.5 for patients with mechanical heart valves or post [place]. Pediatric (12 years and under): 1.5 - 3.0 Although the target range in children is not well established, INR values of 1.5 - 3.0 are recommended for most patients. Higher values have been used in children with prosthetic cardiac valves and hereditary clotting disorders. (<3 days) therapeutic ranges have not been established. PROTIME 16.4(H) 12.7 - 15.1 Seconds [facility] PTT 37.1(H) 24.4 - 36.4 Seconds [facility] Comment: PTT Therapeutic Range: Heparin Level PTT (seconds) <0.10 units/mL <53 0.10 - 0.30 units/mL 53 - 67 0.30 - 0.70 units/mL* 67 - 95* 0.70 - 1.00 units/mL 95 - 116 *corresponds to therapeutic range for unfractionated heparin Blood specimen (specimen) 09/09/2007 11:42 AM CDT 09/09/2007 11:45 AM CDT Fortunato Farrar MD HEMATOLOGY ORDERABLES Edited Performing Organization Address City/[facility]/ZIP Co de Phone Number [facility] [address] [place] [address] * MAGNESIUM LEVEL (09/09/2007 11:42 AM CDT) Pathologist [facility] MAGNESIUM 2.4 1.5 - 2.5 mg/dL [facility] Blood specimen (specimen) 09/09/2007 11:42 AM CDT 09/09/2007 11:45 AM CDT Fortunato Farrar MD CHEMISTRY ORDERABLES Final Res ult Performing Organization Address [facility] Co de Phone Number [facility] [address] [place] [address] * (ABNORMAL) CVR ONLY, CKMB/CK (09/09/2007 11:42 AM CDT) [facility] CKMB 22.5(AA) <=6.7 ng/mL [facility] Comment:Results called to Edison dhillon at 09/09/07 12:22 PM and read back verified. CKMB INTERP See Below [facility] Comment:Elevated CKMB,Consis tent with Myocardial Injury. CK 240(H) 10 - 170 U/L [facility] CARDIAC RELATIVE INDEX 9.4(H) <=4.0 [facility] Blood specimen (specimen) 09/09/2007 11:42 AM CDT 09/09/2007 11:45 AM CDT Fortunato Farrar MD CHEMISTRY ORDERABLES Edited Performing Organization Address [facility] Co de Phone Number [facility] [address] [place] [address] * (ABNORMAL) BASIC METABOLIC PANEL (09/09/2007 11:42 AM CDT) [facility] CREATININE 0.89 0.67 - 1.17 mg/dL [facility] POTASSIUM 4.7 3.5 - 4.9 mmol/L [facility] BUN 18 6 - 20 mg/dL [facility] CHLORIDE 108 96 - 108 mmol/L [facility] GLUCOSE 119(H) 65 - 99 mg/dL [facility] SODIUM 135 135 - 145 mmol/L [facility] CALCIUM 8.1(L) 8.4 - 10.2 mg/dL [facility] CO2 20(L) 22 - 30 mmol/L [facility] GFR, >60 >=60 mL/min/1. 7 sq meter [facility] GFR >60 >=60 mL/min/1. 7 sq meter [facility] Comment: Estimated GFR rate interpretative information for both Americans and non- Americans is available on the [facility] Intranet at: [email or web address] Select: Lab Policies and Procedures Select: Reference Ranges - GFR Blood specimen (specimen) 09/09/2007 11:42 AM CDT 09/09/2007 11:45 AM CDT us Fortunato Farrar MD CHEMISTRY ORDERABLES Edited [facility] [address] [place] [address] * (ABNORMAL) CBC WITH DIFFERENTIAL (09/09/2007 11:42 AM CDT) HEMOGLOBIN 13.4(L) 13.6 - 16.5 g/dL [facility] RDW 13.4 11.5 - 14.5 % [facility] WBC 14.8(H) 4.0 - 9.8 K/uL [facility] MCH 31.8 27.2 - 32.6 pg [facility] MPV 9.7 9.3 - 12.4 fL [facility] HEMATOCRIT 38.5(L) 40.0 - 48.0 % [facility] RDW-STDEV 44.1 37.1 - 48.7 fL [facility] RBC 4.22(L) 4.50 - 5.40 M/uL [facility] MCHC 34.8 31.5 - 35.5 % [facility] MCV 91.2 82.0 - 99.0 fL [facility] PLATELETS 106(L) 140 - 350 K/uL [facility] BASOPHILS ABSOLUTE 0.00 0.00 - 0.20 K/uL [facility] BASOPHILS 0 0 - 2 % [facility] MONOCYTE ABSOLUTE 0.74 0.10 - 1.30 K/uL [facility] MONOCYTES 5 3 - 13 % [facility] NEUTROPHIL ABSOLUTE 13.32(H) 1.90 - 7.00 K/uL [facility] NEUTROPHILS, SEG 90(H) 45 - 70 % [facility] PLATELET EST. Consistent w/ count Normal [facility] EOSINOPHIL ABSOLUTE 0.00 0.00 - 0.70 K/uL [facility] EOSINOPHILS 0 0 - 7 % [facility] LYMPHOCYTE ABSOLUTE 0.74 0.70 - 4.50 K/uL [facility] LYMPHOCYTES 5(L) 16 - 45 % [facility] RBC MORPHOLOGY Normal Normal [facility] Blood specimen (specimen) 09/09/2007 11:42 AM CDT 09/09/2007 11:45 AM CDT us Fortunato Farrar MD HEMATOLOGY ORDERABLES Edited [facility] [address] [place] [address] * XR CHEST PA OR AP (09/09/2007 11:40 AM CDT) Anatomical Region Laterality Modality Chest Other 09/09/2007 11:4 0 AM CDT Narrative 09/09/2007 5:32 PM CDT [facility] [place] [place] [address] [place], [place] [address] Admit Date: 09/09/2007 MINECHANDANFRANCIS Sex: M Admit Prov: FORTUNATO FARRAR Date: 1935 Primary Care Prov: CMRN: [id number] Room: [address] [place] [address] SSN: [id number] IMAGING SERVICES Ordering Prov: N/A Accession Number: [id number] Interpretation PORTABLE CHEST, AP 09/09/2007 AT 1150 HOURS Indication: CVR. Findings: Comparison is made to 09/03/2007. A Sutter-Rachelle catheter from a right jugular approach ends in the right main pulmonary artery. Surgical drains and tubes overlying the mediastinum and right hemithorax are present. Mediastinal clips and median sternotomy wires are a manifestation of prior surgery. An endotracheal tube ends within 1 cm of the dang. An oral enteric tube can be followed into the stomach. Streaky densities suggestive of atelectasis are noted in the left lung. Heart size is normal. Aortic atherosclerosis is present. Impression: 1. Slightly low lying endotracheal tube. 2. Mild left streaky atelectasis. . Dictated by: TAVON FUNEZ 09/09/2007 12:57 Electronically signed by: TAVON FUNEZ 09/09/2007 17:32 Transcribed: 09/09/2007 17:13 Procedure Note Provider, Historical - 09/09/2007 [facility] [place] [place] [address] [place], [place] [address] Admit Date: 09/09/2007 FRANCIS LINDA Sex: M Admit Prov: FORTUNATO FARRAR Date: 1935 Primary Care Prov: CMRN: [id number] Room: [address] [place] [address] 1 SSN: [id number] IMAGING SERVICES Ordering Prov: N/A Interpretation PORTABLE CHEST, AP 09/09/2007 AT 1150 HOURS Indication: CVR. Findings: Comparison is made to 09/03/2007. A Sutter-Rachelle catheter froma right jugular approach ends in the right main pulmonary artery.Surgical drains and tubes overlying the mediastinum and right hemithorax are present. Mediastinal clips and median sternotomy wires are amanifestation of prior surgery. An endotracheal tube ends within 1 cm of thecarina. An oral enteric tube can be followed into the stomach. Streakydensities suggestive of atelectasis are noted in the left lung. Heart size isnormal. Aortic atherosclerosis is present. Impression: 1. Slightly low lying endotracheal tube. 2. Mild left streaky atelectasis. . Dictated by: TAVON FUNEZ 09/09/2007 12:57 Electronically signed by: TAVON FUNEZ 09/09/2007 17:32 Transcribed: 09/09/2007 17:13 SJ Fortunato Farrar MD DIAGNOSTIC IMAGING ORDERABLES Final Result * (ABNORMAL) POC RT, BLOOD GASES (09/09/2007 10:47 AM CDT) TCO2, ABG POC 23 19 - 24 mmol/L [facility] POTASSIUM POC 5.5(H) 3.5 - 4.9 mmol/L [facility] LACTIC ACID 1.7 0.5 - 2.2 mmol/L [facility] PH ARTERIAL 7.34(L) 7.35 - 7.45 [facility] [place] [place] [facility] HCO3 ARTERIAL 22 22 - 26 mmol/L [facility] O2 SAT EST ABG POC 99 95 - 99 % [facility] CALICUM IONIZED, WHOLE BLOOD 5.41(H) 4.76 - 5.16 mg/dL [facility] PO2 ARTERIAL 147(H) 83 - 108 mm Hg [facility] GLUCOSE POC 136(H) 65 - 99 mg/dL [facility] SODIUM POC 127(L) 135 - 145 mmol/L [facility] PCO2 ARTERIAL 40 35 - 48 mm Hg [facility] PATIENT'S TEMPERATURE 37.0 Degree C [facility] BASE EXCESS ABG -3.9(L) -2.0 - 3.0 mmol/L [facility] HEMATOCRIT POC 24.0(L) 40.0 - 48.0 % [facility] Blood specimen (specimen) 09/09/2007 10:47 AM CDT 09/09/2007 10:47 AM CDT us Fortunato Farrar MD CHEMISTRY ORDERABLES Final Res ult [facility] [address] [place] [address] * (ABNORMAL) POC RT, BLOOD GASES (09/09/2007 10:22 AM CDT) LACTIC ACID 1.5 0.5 - 2.2 mmol/L [facility] PO2 ARTERIAL 360(H) 83 - 108 mm Hg [facility] SODIUM POC 126(L) 135 - 145 mmol/L [facility] PH ARTERIAL 7.38 7.35 - 7.45 [facility] [place] [place] [facility] BASE EXCESS ABG -3.5(L) -2.0 - 3.0 mmol/L [facility] GLUCOSE POC 151(H) 65 - 99 mg/dL [facility] [place] [facility] HEMATOCRIT POC 25.0(L) 40.0 - 48.0 % [facility] O2 SAT EST ABG POC 100(H) 95 - 99 % [facility] TCO2, ABG POC 22 19 - 24 mmol/L [facility] POTASSIUM POC 6.2(AA) 3.5 - 4.9 mmol/L [facility] PCO2 ARTERIAL 36 35 - 48 mm Hg [facility] COMMENT, GASES POC CPB #4 [facility] HCO3 ARTERIAL 21(L) 22 - 26 mmol/L [facility] PATIENT'S TEMPERATURE 37.0 Degree C [facility] IONIZED, WHOLE BLOOD 4.29(L) 4.76 - 5.16 mg/dL [facility] Blood specimen (specimen) 09/09/2007 10:22 AM CDT 09/09/2007 10:22 AM CDT us Fortunato Farrar MD CHEMISTRY ORDERABLES Final Res ult [facility] [address] [place] [id number] * (ABNORMAL) POC RT, BLOOD GASES (09/09/2007 9:53 AM CDT) PO2 ARTERIAL 360(H) 83 - 108 mm Hg [facility] [facility] IONIZED, WHOLE BLOOD 4.45(L) 4.76 - 5.16 mg/dL [facility] PO2 TEMP CORRECT 345 mm Hg [facility] LACTIC ACID 1.4 0.5 - 2.2 mmol/L [facility] PH ARTERIAL 7.39 7.35 - 7.45 [facility] [place] [place] [facility] PH TEMP CORRECT 7.43 [facility] SODIUM POC 131(L) 135 - 145 mmol/L [facility] O2 SAT EST ABG POC 100(H) 95 - 99 % [facility] BASE EXCESS ABG -1.2 -2.0 - 3.0 mmol/L [facility] GLUCOSE POC 141(H) 65 - 99 mg/dL [facility] HEMATOCRIT POC 26.0(L) 40.0 - 48.0 % [facility] PCO2 ARTERIAL 39 35 - 48 mm Hg [facility] PCO2 TEMP CORRECT 34 mm Hg [facility] TCO2, ABG POC 25(H) 19 - 24 mmol/L [facility] POTASSIUM POC 6.0(H) 3.5 - 4.9 mmol/L [facility] PATIENT'S TEMPERATURE 34.0 Degree C [facility] COMMENT, GASES POC CPB #3 [facility] HCO3 ARTERIAL 24 22 - 26 mmol/L [facility] Blood specimen (specimen) 09/09/2007 9:53 AM CDT 09/09/2007 9:53 AM CDT us Fortunato Farrar MD CHEMISTRY ORDERABLES Final Res ult [facility] [address] [place], [place] [address] * (ABNORMAL) POC RT, BLOOD GASES (09/09/2007 9:27 AM CDT) PO2 ARTERIAL 312(H) 83 - 108 mm Hg [facility] CALICUM IONIZED, WHOLE BLOOD 4.49(L) 4.76 - 5.16 mg/dL [facility] PO2 TEMP CORRECT 298 mm Hg [facility] LACTIC ACID 1.5 0.5 - 2.2 mmol/L [facility] PH ARTERIAL 7.37 7.35 - 7.45 [facility] [place] [place] [facility] PH TEMP CORRECT 7.41 [facility] SODIUM POC 135 135 - 145 mmol/L [facility] O2 SAT EST ABG POC 100(H) 95 - 99 % [facility] BASE EXCESS ABG -1.5 -2.0 - 3.0 mmol/L [facility] GLUCOSE POC 115(H) 65 - 99 mg/dL [facility] HEMATOCRIT POC 28.0(L) 40.0 - 48.0 % [facility] PCO2 ARTERIAL 41 35 - 48 mm Hg [facility] PCO2 TEMP CORRECT 36 mm Hg [facility] TCO2, ABG POC 25(H) 19 - 24 mmol/L [facility] POTASSIUM POC 5.2(H) 3.5 - 4.9 mmol/L [facility] PATIENT'S TEMPERATURE 34.0 Degree C [facility] COMMENT, GASES POC CPB #2 [facility] HCO3 ARTERIAL 24 22 - 26 mmol/L [facility] Blood specimen (specimen) 09/09/2007 9:27 AM CDT 09/09/2007 9:27 AM CDT us Fortunato Farrar MD CHEMISTRY ORDERABLES Final Res ult [facility] [address] [facility] [address] * (ABNORMAL) POC RT, BLOOD GASES (09/09/2007 9:23 AM CDT) PH MVBG 7.34 7.32 - 7.43 [facility] PH TEMP CORRECT 7.38 [facility] SODIUM POC 135 135 - 145 mmol/L [facility] O2 SAT EST MVBG POC 87(H) 40 - 70 % [facility] BASE EXCESS VENOUS -0.5 -2.0 - 3.0 mmol/L [facility] GLUCOSE POC 115(H) 65 - 99 mg/dL [facility] HEMATOCRIT POC 27.0(L) 40.0 - 48.0 % [facility] PCO2 VENOUS 47 38 - 50 mm Hg [facility] PCO2 TEMP CORRECT 41 mm Hg [facility] TCO2, MVBG POC 27(H) 22 - 26 mmol/L [facility] POTASSIUM POC 5.2(H) 3.5 - 4.9 mmol/L [facility] PATIENT'S TEMPERATURE 34.0 Degree C [facility] COMMENT, GASES POC CPB #1 [facility] HCO3 MIXED VENOUS 25 22 - 29 mmol/L [facility] PO2 MVBG 57(H) 25 - 40 mm Hg [facility] CALICUM IONIZED, WHOLE BLOOD 4.57(L) 4.76 - 5.16 mg/dL [facility] PO2 TEMP CORRECT 46 mm Hg [facility] LACTIC ACID 1.4 0.5 - 2.2 mmol/L [facility] Blood specimen (specimen) 09/09/2007 9:23 AM CDT 09/09/2007 9:23 AM CDT us Fortunato Farrar MD CHEMISTRY ORDERABLES Final Res ult [facility] [address] [facility] [place] [address] * XR CHEST PA AND LATERAL (09/03/2007 10:24 AM CDT) Anatomical Region Laterality Modality Chest Other 09/03/2007 10:2 4 AM CDT Narrative 09/03/2007 11:10 AM CDT [facility] [place] [place] [address] [place], [place] [address] Admit Date: 08/31/2007 FRANCIS LINDA Sex: M Admit Prov: FORTUNATO FARRAR Date: 1935 Primary Care Prov: CMRN: [id number] Room: SURG-A SSN: [id number] IMAGING SERVICES Ordering Prov: N/A Accession Number: [id number] Interpretation CHEST 2 VIEWS, 09/03/2007 Clinical History: Respiratory abnormality. PA and lateral views of the chest on 09/03/07 demonstrate the cardiomediastinal silhouette and pulmonary vasculature to be within normal limits. The lungs are clear of acute process. No effusions or pneumothoraces are evident. 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 Impression: No acute disease. Eventration of the anterior right hemidiaphragm. . Dictated by: ASHLEY RIOS 09/03/2007 10:30 Electronically signed by: ASHLEY RIOS09/03/2007 11:10 Transcribed: 09/03/2007 11:01 SMM Procedure Note Ashley Rios MD - 09/03/2007 [facility] [place], [place] [address], [place] [address] Admit Date: 08/31/2007 FRANCIS LINDA Sex: M Admit Prov: MIR FORTUNATO Zazueta Date: 1935 Primary Care Prov: CMRN: [id number] Room: [facility] SSN: [id number] IMAGING SERVICES Ordering Prov: N/A Interpretation CHEST 2 VIEWS, 09/03/2007 Clinical History: Respiratory abnormality. PA and lateral views of the chest on 09/03/07 demonstrate the cardiomediastinal silhouette and pulmonary vasculature to be withinnormal limits. The lungs are clear of acute process. No effusions or pneumothoraces are evident. Partial eventration of the anteriorright hemidiaphragm is noted. Impression: No acute disease. Eventration of the anterior right hemidiaphragm. . Dictated by: ASHLEY RIOS 09/03/2007 10:30 Electronically signed by: ASHLEY RIOS09/03/2007 11:10 Transcribed: 09/03/2007 11:01 SMM Fortuntao Farrar MD DIAGNOSTIC IMAGING ORDERABLES Final Result * (ABNORMAL) COMPREHENSIVE METABOLIC PANEL (09/03/2007 10:05 AM CDT) CREATININE 0.91 0.67 - 1.17 mg/dL [facility] SODIUM 141 135 - 145 mmol/L [facility] ALT 29 0 - 41 U/L [facility] ALKALINE PHOSPHATASE 42 40 - 129 U/L [facility] BILIRUBIN TOTAL 0.5 0.2 - 1.0 mg/dL [facility] CO2 24 22 - 30 mmol/L [facility] TOTAL PROTEIN 6.7 6.3 - 8.6 g/dL [facility] POTASSIUM 3.8 3.5 - 4.9 mmol/L [facility] GLUCOSE 140(H) 65 - 99 mg/dL [facility] AST 32 12 - 38 U/L [facility] BUN 18 6 - 20 mg/dL [facility] CALCIUM 8.5 8.4 - 10.2 mg/dL [facility] CHLORIDE 107 96 - 108 mmol/L [facility] ALBUMIN 4.1 3.4 - 4.8 g/dL [facility] GFR, >60 >=60 mL/min/1. 7 sq meter [facility] GFR >60 >=60 mL/min/1. 7 sq meter [facility] Comment: Estimated GFR rate interpretative information for both Americans and non- Americans is available on the [facility] Intranet at: [email or web address] Select: Lab Policies and Procedures Select: Reference Ranges - GFR Blood specimen (specimen) 09/03/2007 10:05 AM CDT 09/03/2007 10:50 AM CDT Fortunato Farrar MD CHEMISTRY ORDERABLES Edited [facility] [address] [place] [address] * PT AND APTT (09/03/2007 10:05 AM CDT) INR 1.0 0.9 - 1.1 [facility] Comment: INR Therapeutic Range: Adult: 2.0 - 3.0 for pulmonary embolism or prophylaxis against venous thrombosis or systemic embolization. 2.0 - 3.0 for patients with tissue heart valves. 2.5 - 3.5 for patients with mechanical heart valves or post [place]. Pediatric (12 years and under): 1.5 - 3.0 Although the target range in children is not well established, INR values of 1.5 - 3.0 are recommended for most patients. Higher values have been used in children with prosthetic cardiac valves and hereditary clotting disorders. (<3 days) therapeutic ranges have not been established. PROTIME 13.2 12.7 - 15.1 Seconds [facility] PTT 31.9 24.4 - 36.4 Seconds [facility] Comment: PTT Therapeutic Range: Heparin Level PTT (seconds) <0.10 units/mL <53 0.10 - 0.30 units/mL 53 - 67 0.30 - 0.70 units/mL* 67 - 95* 0.70 - 1.00 units/mL 95 - 116 *corresponds to therapeutic range for unfractionated heparin Blood specimen (specimen) 09/03/2007 10:05 AM CDT 09/03/2007 10:50 AM CDT us Fortunato Farrar MD HEMATOLOGY ORDERABLES Edited [facility] [address] [place] [address] * (ABNORMAL) CBC WITH DIFFERENTIAL (09/03/2007 10:05 AM CDT) [facility] HEMOGLOBIN 14.7 13.6 - 16.5 g/dL [facility] RDW 13.0 11.5 - 14.5 % [facility] WBC 5.2 4.0 - 9.8 K/uL [facility] MCH 31.3 27.2 - 32.6 pg [facility] MPV 10.2 9.3 - 12.4 fL [facility] HEMATOCRIT 42.3 40.0 - 48.0 % [facility] RDW-STDEV 41.7 37.1 - 48.7 fL [facility] RBC 4.69 4.50 - 5.40 M/uL [facility] MCHC 34.8 31.5 - 35.5 % [facility] MCV 90.2 82.0 - 99.0 fL [facility] PLATELETS 137(L) 140 - 350 K/uL [facility] EOSINOPHILS 4 0 - 7 % [facility] EOSINOPHIL ABSOLUTE 0.18 0.00 - 0.70 K/uL [facility] LYMPHOCYTES 27 16 - 45 % [facility] LYMPHOCYTE ABSOLUTE 1.40 0.70 - 4.50 K/uL [facility] BASOPHILS 0 0 - 2 % [facility] BASOPHILS ABSOLUTE 0.02 0.00 - 0.20 K/uL [facility] MONOCYTES 8 3 - 13 % [facility] MONOCYTE ABSOLUTE 0.42 0.10 - 1.30 K/uL [facility] NEUTROPHILS 61 45 - 70 % [facility] NEUTROPHIL ABSOLUTE 3.15 1.90 - 7.00 K/uL [facility] Blood specimen (specimen) 09/03/2007 10:05 AM CDT 09/03/2007 10:50 AM CDT us Fortunato Farrar MD HEMATOLOGY ORDERABLES Edited INTERFACE SYSTEM Refer to clinic/hospital department [facility] [address] [place] [address] * URINALYSIS (09/03/2007 9:48 AM CDT) SPECIFIC GRAVITY UA 1.020 1.001 - 1.035 [facility] BLOOD UA Negative Negative [facility] GLUCOSE UA Negative Negative [facility] COLOR UA Yellow [facility] NITRITE UA Negative Negative [facility] UROBILINOGEN UA <1 <=1 mg/dL [facility] PH UA 5.0 5.0 - 8.0 [facility] KETONES UA Negative Negative [facility] CLARITY UA Clear Clear [facility] PROTEIN UA Negative Negative [facility] BILIRUBIN UA Negative Negative [facility] LEUKOCYTE ESTERASE UA Negative Negative [facility] 09/03/2007 9:48 AM CDT 09/03/2007 10:39 AM CDT Fortunato Farrar MD URINE ORDERABLES Final Result Performing Organization Address [facility] Co de Phone Number [facility] [address] [place] [address] * URINALYSIS WITH REFLEX CULTURE (09/03/2007 9:48 AM CDT) Pathologist [facility] URINE CULTURE ORDER Not indicated [facility] Comment: Criteria for a reflex culture include one or more of the following: Abnormal nitrite, leukocyte esterase, WBCs or RBCs. Lack of qualifying criteria does not exclude the possiblity of a urinary tract infection. Dilute urine, drug interference, etc. may decrease the sensitivity of the criteria analytes. Urine, clean catch 09/03/2007 9:48 AM CDT 09/03/2007 10:39 AM CDT us Fortunato Farrar MD URINE ORDERABLES Final Result Performing Organization Address City/[facility]/ZIP Co de Phone Number [facility] [address] [place] [address] documented in this encounter Visit Diagnoses Diagnosis Coronary atherosclerosis of [place] coronary artery Old myocardial infarction Unspecified essential hypertension Dyspepsia and other specified disorders of function of stomach Personal history of other malignant neoplasm of skin documented in this encounter
--- OUTSIDE RECORDS SUMMARY | 2024-11-24 13:59 | XMS_ITS | Encounter Summary ---
Author Organization [facility] Address 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 Gender Identity Not on file Sexual Orientation Not on file documented as of this encounter Plan of Treatment Not on file documented as of this encounter Procedures Procedure Name Priority Date/Time Associated Diagnosis Comments XR CHEST PA AND LATERAL 2 VW Routine 10/12/2007 8:24 AM CDT documented in this encounter Results * XR CHEST PA AND LATERAL (10/12/2007 8:24 AM CDT) Anatomical Region Laterality Modality Chest Other 10/12/2007 8:24 AM CDT Narrative 10/12/2007 4:59 PM CDT [address] [address] Admit Date: 10/12/2007 MIGUEL LINDA Sex: M Admit Prov: FORTUNATO FARRAR Date: 1935 Primary Care Prov: CMRN: [id number] Room: ANTHONYAnushka N: [id number] IMAGING SERVICES Ordering Prov: N/A Accession Number: [id number] Interpretation CHEST, PA AND LATERAL, 10/12/2007. Clinical History: Coronary atherosclerosis. Findings: Sternal wire sutures and mediastinal surgical clips are present as manifestations of previous surgery. The lungs are better expanded overall, and the left base is clearer since 09/12/2007. There is no acute infiltration or pneumothorax. There is probably a minimal amount of left pleural effusion present. The regional skeleton appears intact. There are Schmorl's nodes in the lower thoracic spine. The aorta is atherosclerotic. The cardiac silhouette is not enlarged. Conclusion: Small amount of left pleural effusion. Postsurgical changes. No acute infiltration. Interval improvement in pleural fluid and left basilar atelectasis since 09/12/07. . Dictated by: RAMON BENEDICT 10/12/2007 08:38 Electronically signed by: RAMON BENEDICT 10/12/2007 16:59 Transcribed: 10/12/2007 08:52 LE Procedure Note Provider, Historical - 10/12/2007 [facility] [address], [place] [address] Admit Date: 10/12/2007 MIGUEL LINDA Sex: M Admit Prov: FORTUNATO FARRAR Date: 1935 Primary Care Prov: CMRN: [id number] Room: Anushka N: [id number] IMAGING SERVICES Ordering Prov: N/A Interpretation CHEST, PA AND LATERAL, 10/12/2007. Clinical History: Coronary atherosclerosis. Findings: Sternal wire sutures and mediastinal surgical clips arepresent as manifestations of previous surgery. The lungs are betterexpanded overall, and the left base is clearer since 09/12/2007. There is noacute infiltration or pneumothorax. There is probably a minimal amount ofleft pleural effusion present. The regional skeleton appears intact. Thereare Schmorl's nodes in the lower thoracic spine. The aorta isatherosclerotic. The cardiac silhouette is not enlarged. Conclusion: Small amount of left pleural effusion. Postsurgical changes. No acute infiltration. Interval improvement in pleural fluid and left basilar atelectasissince 09/12/07. . Dictated by: RAMON BENEDICT 10/12/2007 08:38 Electronically signed by: RAMON BENEDICT 10/12/2007 16:59 Transcribed: 10/12/2007 08:52 LE Fortunato Farrar MD DIAGNOSTIC IMAGING ORDERABLES Final Result documented in this encounter Visit Diagnoses Diagnosis Coronary atherosclerosis of [place] coronary artery documented in this encounter
--- OUTSIDE RECORDS SUMMARY | 2024-11-24 13:59 | XMS_ITS | Encounter Summary ---
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, face and neck Social History Tobacco Use Types Packs/Day Years Used Date Smoking Tobacco: Never Assessed Sex and Gender Information Value Date Recorded Sex Assigned at Not on file Legal Sex Male 3:26 PM CDT Gender Identity Not on file Sexual Orientation Not on file documented as of this encounter Plan of Treatment Not on file documented as of this encounter Procedures Procedure Name Priority Date/Time Associated Diagnosis Comments DERMATOPATHOLOGY Routine 05/07/2023 12:0 0 AM SOFTWARE [employer] ARCHITECT 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 The specimen consists of a non-oriented ellipse of skin measuring 78r20m5 mm. Also, there a lesion measuring 10x10 mm. The margin is inked green. The remainder of the ellipse is serially sectioned and submitted in cassette 1 - 4. Jar 0. 3 3:20 PM [facility]ERMATOPATH[facility] Microscopic Description Specimen A. SKIN, right vertex: There is a cellular, dermal based tumor comprised of spindle, oval, and polygonal cells with pleomorphic and polymorphic nuclei. Multinucleated giant cells and mitotic figures are present. Lesional cells are highlighted by CD10 immunostain. This lesion is not present at the margin of the specimen. In addition, there is hyperkeratosis alternating with parakeratosis. There are multiple foci with epidermal hyperplasia and disorderly maturation of keratinocytes with nuclear pleomorphism confined to the lower half of the epidermis. This lesion approximates the margin of the specimen. There are fibroblasts and collagen bundles oriented parallel to the skin surface with elongated blood vessels, some of which are oriented perpendicular to the skin surface. COMMENT: The prior biopsy ([id number]) is reviewed. 3 3:20 PM [facility]ERMAT[facility] Disclaimer An external and internal positive and negative controls are appropriate for the histochemical, immunohistochemical and immunofluorescence stain(s) in this case (if any), except where stated explicitly. The performance characteristics of the stain(s) cited in this report were developed and its performance characteristic determined by the Dermatopathology Laboratory at [facility], directed by Dr. Abraham Hilliard. These tests need not be, and therefore are not, approved by the [place] Food and Drug Administration. The tests are used for clinical purposes. Billing Codes Specimen Charges Stain Charges 04685 1 43686 1 3 3:20 PM [employer] DERMATOPATHOLOGY LABORATORY Embedded Images 3 3:20 PM [employer]CH[employer] DERMATOPATHOLOGY LABORATORY Pathology/Cytolog y TISSUE SPECIMEN FROM SKIN / Unknown 05/07/2023 05/09/2023 6:31 AM SOFTWARE [employer] ARCHITECT Foreign Sena MD LAB - PATHOLOGY/CYTOLOGY ORDE LUCIE Final Result DERMATOPATHOLOGY LABORATORY [facility] - Department of Dermatology [facility] [address] [place] [address], [address] [phone] documented in this encounter Visit Diagnoses Diagnosis 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
--- OUTSIDE RECORDS SUMMARY | 2024-11-24 13:59 | XMS_ITS | Encounter Summary ---
Author Organization [facility] Address 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
--- OUTSIDE RECORDS SUMMARY | 2024-11-24 13:59 | XMS_ITS | Clinical Summary ---
Author Organization [facility] [place] [address] Address [address] [place] [address] Care Team Providers Care Medical Records Library Professor Name Role Phone Ralph Huynh DO Primary Care Provide r Allergies Active Allergy Reactions Criticality Noted Date Comments Penicillins Rash Medium Sulfa (Sulfonamide Antibiotics) Rash Medium Medications atorvastatin (LIPITOR) 10 mg tablet take 1 tablet (10MG) by oral route every day 0 2 Active Additional Information Patient taking differently:10 mgoral Nightly, Reported on 11/13/2022 reed iic-wkc-R4-Zn-co p-man-bor (CITRACAL PLUS MAGNESIUM) 250-40-125 mg-mg-unit tablet take 1 by Oral route every day 0 2 Active glucosamine-cherelle droit-vit C-Mn (GLUCOSAMINE CHONDROITIN MAXSTR) 500-400 mg capsule take 1 by oral route every day 0 2 Active aspirin 325 mg EC tablet take 1 tablet (325MG) by oral route every day 0 2 Active carvedilol (COREG) 6.25 mg tablet take 1 tablet by oral route 2 times every day with food 180 3 4 Active magnesium gluconate (MAGONATE) 500 mg (27 mg elemental) tabletIndication s:hypomagnesemia Take 1 tablet (500 mg total) by mouth daily Active losartan (COZAAR) 25 mg tablet Take 1 tablet (25 mg total) by mouth daily 1 Active cyanocobalamin (Vitamin B-12) 1,000 mcg tabletIndication s:Prevention of Vitamin B12 Deficiency Take 1 tablet (1,000 mcg total) by mouth daily Active HYDROcodone-acet aminophen (NORCO) 5-325 mg per tabletIndication s:Pain Take 1 tablet by mouth every 6 (six) hours as needed for pain 20 tablet Active Active Problems Problem Noted Date Diagnosed Date Coronary artery disease invo lving [place] coronary artery of [place] heart without angina pectoris 07/20/2018 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 Hypertension Pneumonia high school High cholesterol Heart disease Cancer (HCC) skin cancers, ba nadja cell Family History Medical History Relation Name Comments Heart attack Father 2 Myocardial Infa rction; Relation Name Status Comments Father 1 Alive Father 2 Social History Tobacco Use Types Packs/Day Years Used Date Smoking Tobacco: Never Passive Smoke Exposure: Past Smokeless Tobacco: Never Tobacco Cessation:Counseling Given: Not Answered Alcohol Use Standard Drinks/Week Comments Yes 0 (1 standard drink = 0.6 oz pur e alcohol) AUDIT-C Answer Date Recorded Q1: How often do you have a drink containing alc ohol? 2-3 times a week 03/03/2022 Q2: How many drinks containi ng alcohol do you have on a typical day when you are drinking? 1 or 2 03/03/2022 Q3: How often do you have si x or more drinks on one occasion? 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 Gender Identity Not on file Sexual Orientation Not on file Obstetrics History Last Filed Vital Signs Vital Sign Reading Time Taken Comments Blood Pressure 130/80 11/19/2023 9:25 AM CDT Pulse 74 11/19/2023 9:25 AM CDT Temperature 36.1 C (96.9 F) 03/03/2022 12:00 PM CDT Respiratory Rate 14 03/03/2022 12:00 PM CDT Oxygen Saturation 98% 11/19/2023 9:25 AM CDT Inhaled Oxygen Concentration - - Weight 83.6 kg (184 lb 4.8 oz) 11/19/2023 9:25 A M CDT Height 165.1 cm (5' 5) 11/19/2023 9:25 AM CDT Body Mass Index 30.67 11/19/2023 9:25 AM CDT Plan of Treatment Health Maintenance Due Date Last Done Comments Depression Screening 1935 Hepatitis B Screening 09/28/1953 Well Visit 65+ 2002 Fall Risk Assessment 03/03/2023 03/03/2022 Covid-19 Vaccine (2023-2 5 season) 2024 04/13/2022, 11/18/2021, 05/08/2021, Additional history exists Influenza Vaccine (Season Ended) 2025 03/10/2023, 02/27/2022, 02/26/2022, Additional history exists DTaP/Tdap/Td Vaccine (3 - Td or Tdap) 03/24/2028 03/24/2018, 06/22/2001 Zoster Vaccine Completed 11/23/2019, 04/22, 04/22/2019, Additional history exists Pneumococcal vaccine 65+ Completed 02/25/2022, 06/2016 Medical Devices Implanted Type Area Duralumin Mechanic Device Identifier Shelf Expiration Date Model / Serial / Lot [employer]/C R Bard Bard Marlex 6x3in Monofilament Gold Standard Flat Sheet Groin [id number] - [id number] Implanted:Qty: 1 on 03/03/2022 by Krishna Isabel MD at [facility] [employer]/C R Bard [id number] 05/19/2026 [id number] / / [id number] Insurance [facility] [place] [facility] [place] Care Teams Medical Records Library Professor Relationship Specialty Start Date End Date Ralph Huynh DO [address] [place] [id number] PCP - General Family Medicine 09/25/20
--- OUTSIDE RECORDS SUMMARY | 2024-11-24 13:59 | XMS_ITS | Encounter Summary ---
Author Organization [facility] Address [address] [facility] [place] [address] Care Team Providers Care Service Delivery Director Name Role Phone Unavailable Primary Care Provider Unavailabl e Encounter Details Date Type Department Care Team (Late st Contact Info) Description 05/11/2024 Lab Requisition [facility] - DermPath Lab [address] [place] [id number] Trista Donis MD [address] [place] [address] Neoplasm of uncertain behavior of skin Social History Tobacco Use Types Packs/Day Years [...] Priority Date/Time Associated Diagnosis Comments DERMATOPATHOLOGY Routine 05/11/2024 3:33 AM PROPAGATOR LABORER Neoplasm of uncertain behavior of skin documented in this encounter Results * DERMATOPATHOLOGY (05/11/2024 3:33 AM PROPAGATOR LABORER) Case Report Dermatopathology Report Case: [id number] Authorizing Provider: Trista Donis MD Collected: 05/11/2024 03:33 AM Ordering Location: [facility] - Received: 05/12/2024 01:55 PM DermPath Lab Pathologist: Page Hunter MD Specimen: Skin, mid frontal scalp 1:10 PM PROPAGATOR LABORER DERMATOPATHOLOGY LABORATORY Final Diagnosis Specimen A. 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 The specimen consists of a shave biopsy measuring 8x5x3 mm. Jar 0. 1:10 PM [facility] DERMATOPATHOLOGY LABORATORY Microscopic Description Specimen A. SKIN, mid frontal scalp: The epidermis shows parakeratosis, full thickness disorderly maturation of keratinocytes, mitoses at different levels, and dyskeratotic cells. Focal nests are present in the dermis. 1:10 PM [facility] DERMATOPATHOLOGY LABORATORY Disclaimer An external and internal positive and negative controls are appropriate for the histochemical, immunohistochemical and immunofluorescence stain(s) in this case (if any), except where stated explicitly. The performance characteristics of the stain(s) cited in this report were developed and its performance characteristic determined by the Dermatopathology Laboratory at [facility], directed by Dr. Abraham Hilliard. These tests need not be, and therefore are not, approved by the [place] Food and Drug Administration. The tests are used for clinical purposes. Billing Codes Specimen Charges Stain Charges 14439 1 1:10 PM [facility] DERMATOPATHOLOGY LABORATORY Embedded Images 1:10 PM [facility] DERMATOPATHOLOGY LABORATORY Pathology/Cytolo gy TISSUE SPECIMEN FROM SKIN / Unknown 05/11/2024 3:33 AM PROPAGATOR LABORER 05/12/2024 1:55 PM PROPAGATOR LABORER us Trista Donis MD LAB - PATHOLOGY/CYTOLOGY ORDERAB LES Final Result DERMATOPATHOLOGY LABORATORY [facility] - Department of Dermatology [address] [place] [address], [facility] [phone] documented in this encounter Visit Diagnoses Diagnosis Neoplasm of uncertain behavior of skin documented in this encounter
--- OUTSIDE RECORDS SUMMARY | 2024-11-24 13:59 | XMS_ITS | Encounter Summary ---
Author Organization [facility] Address [address] [place] [address] Care Team Providers Care Assistant Vice President Name Role Phone Unavailable Primary Care Provider Chayito e Encounter Details Date Type Department Care Team (Latest Contact Info) Description 08/23/2007 Outpatient Historical HIS CARD KENNEL KEEPER Willard Samayoa MD [address] [address] Other Nonspecific Abnormal Cardiovascular System Function Study; Coronary Atherosclerosis of [place] Coronary Artery; Other and Unspecified Angina Pectoris; Other Dyspnea and Respiratory Abnormality; Pure Hypercholesterolemia Social History Tobacco Use Types Packs/Day Years Used Date Smoking Tobacco: Never Assessed Sex and Gender Information Value Date Recorded Sex Assigned at Not on file Legal Sex Male 5:32 AM DOT NET ARCHITECT Gender Identity Not on file Sexual Orientation Not on file documented as of this encounter Plan of Treatment Not on file documented as of this encounter Procedures Procedure Name Priority Date/Time Associated Diagnosis Comments CL CORONARY ANGIOGRAM Routine 08/23/2007 10:10 AM DOT NET ARCHITECT documented in this encounter Results * CL CORONARY ANGIOGRAM (08/23/2007 10:10 AM DOT NET ARCHITECT) Narrative INTERFACE SYSTEM - 08/23/2007 10:10 AM DOT NET ARCHITECT Please type in written order [facility] [place] [address] [place] [address] [email or web address] Cardiac Catheterization Comprehensive Report Patient: Moshe Mclean Study ID: [id number] Gender: M : 1935 Age: 71 years Race: 1 Room: Bed: Height: 65 in ( 165.1 cm ) Study Date: August 23, 2007 Patient status: Outpatient Weight: 194.9 lb ( 88.6 kg ) Access. #: [id number] POC: Attending MD: Piyush Performing MD: Piyush Indications and History: INDICATIONS: Atypical anginal pain. The patient stable. Procedure(s) Performed: DIAGNOSTIC PROCEDURES: Left heart catheterization. Left ventriculography. Selective coronary angiography. Study Conclusions: SUMMARY - Analysis of regional contractile function demonstrated diaphragmatic akinesis, posterobasal akinesis, and inferobasal akinesis. - Proximal LAD: There was a 80 % stenosis at the origin of first septal : There was a second 70 % stenosis in the proximal third of the vessel segment : Ostial circumflex: There was a 90 % stenosis : Proximal RCA: There was a 95 % stenosis : RPDA: There was a second 50 % stenosis in the proximal third of the vessel segment : RECOMMENDATIONS Based on the conclusions of this study, a cardiac surgery consult be obtained for coronary artery bypass grafting. COMPLICATIONS: There were no complications. Description of Procedure: BACKGROUND INFORMATION: Contrast (Omnipaque, 120 ml ) was administered during the procedure. The patient was given 2.000 mg VERSED. Cardiac structures: VENTRICULOGRAPHY: Analysis of regional contractile function demonstrated diaphragmatic akinesis, posterobasal akinesis, and inferobasal akinesis. Coronary and graft angiography: The coronary circulation is right dominant. Except as noted, lesion stenosis was estimated visually. LEFT MAIN CORONARY ARTERY: Left main: Angiographically normal. LEFT ANTERIOR DESCENDING AND BRANCHES: Proximal LAD: There was a 80 % stenosis at the origin of first septal : There was a second 70 % stenosis in the proximal third of the vessel segment : LEFT CIRCUMFLEX AND BRANCHES: Ostial circumflex: There was a 90 % stenosis : RIGHT CORONARY AND BRANCHES: Proximal RCA: There was a 95 % stenosis : RPDA: There was a second 50 % stenosis in the proximal third of the vessel segment : Condition1: --- Pressure mmHg Rate dPdt AO 126-S/ 73-D, 96-M 77 BPM LV 132-S/ 10-BD, 22-ED 80 BPM 1880 AOp 132-S/ 53-D, 88-M 81 BPM Prepared and Electronically Authenticated Willard Webb MD Confirmed August 23, 2007 09:44:17 Procedure Note Provider, Historical - 08/23/2007 Please type in written order [place] [address] [place] [address] [email or web address] Cardiac Catheterization Comprehensive Report Patient: Moshe Mclean Study ID: [id number] Gender: M : 1935 Age: 71 years Race: 1 Room: Bed: Height: 65 in ( 165.1 cm ) Study Date: August 23, 2007 Patient status: Outpatient Weight: 194.9 lb ( 88.6 kg ) Access. #: [id number] POC: Attending MD: Piyush Performing MD: Piyush Indications and History: INDICATIONS: Atypical anginal pain. The patient stable. Procedure(s) Performed: DIAGNOSTIC PROCEDURES: Left heart catheterization. Left ventriculography. Selective coronary angiography. Study Conclusions: SUMMARY - Analysis of regional contractile function demonstrated diaphragmatic akinesis, posterobasal akinesis, and inferobasal akinesis. - Proximal LAD: There was a 80 % stenosis at the origin of first septal: There was a second 70 % stenosis in the proximal third of the vessel segment : Ostial circumflex: There was a 90 % stenosis : Proximal RCA: There was a 95 % stenosis : RPDA: There was a second 50 % stenosis in the proximal third of the vessel segment : RECOMMENDATIONS Based on the conclusions of this study, a cardiac surgery consult be obtained for coronary artery bypass grafting. COMPLICATIONS: There were no complications. Description of Procedure: BACKGROUND INFORMATION: Contrast (Omnipaque, 120 ml ) was administered during the procedure. The patient was given 2.000 mg VERSED. Cardiac structures: VENTRICULOGRAPHY: Analysis of regional contractile function demonstrated diaphragmatic akinesis, posterobasal akinesis, and inferobasal akinesis. Coronary and graft angiography: The coronary circulation is right dominant. Except as noted, lesion stenosis was estimated visually. LEFT MAIN CORONARY ARTERY: Left main: Angiographically normal. LEFT ANTERIOR DESCENDING AND BRANCHES: Proximal LAD: There was a 80 % stenosis at the origin of first septal : There was a second 70 % stenosis in the proximal third of the vessel segment : LEFT CIRCUMFLEX AND BRANCHES: Ostial circumflex: There was a 90 % stenosis : RIGHT CORONARY AND BRANCHES: Proximal RCA: There was a 95 % stenosis : RPDA: There was a second 50 % stenosis in the proximal third of the vessel segment : Condition1: --- Pressure mmHg Rate dPdt AO 126-S/ 73-D, 96-M 77 BPM LV 132-S/ 10-BD, 22-ED 80 BPM 1880 AOp 132-S/ 53-D, 88-M 81 BPM Prepared and Electronically Authenticated Willard Webb MD Confirmed August 23, 2007 09:44:17 us Willard Webb MD FLUOROSCOPY ORDERABLES Fi nal Result INTERFACE SYSTEM Refer to clinic/hospital department documented in this encounter Visit Diagnoses Diagnosis Other nonspecific abnormal cardiovascular system function study Coronary atherosclerosis of [place] coronary artery Other and unspecified angina pectoris Other dyspnea and respiratory abnormality Pure hypercholesterolemia documented in this encounter
--- OUTSIDE RECORDS SUMMARY | 2024-11-24 13:59 | XMS_ITS | Encounter Summary ---
Author Organization [facility] Address [address] [facility] [place] [address] Care Team Providers Care Dispatch Supervisor Name Role Phone Unavailable Primary Care Provider Unavailabl e Encounter Details Date Type Department Care Team (Late st Contact Info) Description 11/04/2023 Lab Requisition [facility] - DermPath Lab [address] [place] [id number] Trista Donis MD [address] [place] [address] Neoplasm of uncertain behavior of skin [...] Priority Date/Time Associated Diagnosis Comments DERMATOPATHOLOGY Routine 11/04/2023 12:0 0 AM CDT Neoplasm of uncertain behavior of skin documented in this encounter Results * DERMATOPATHOLOGY (11/04/2023 12:00 AM CDT) Case Report Dermatopathology Report Case: [id number] Authorizing Provider: Trista Donis MD Collected: 11/04/2023 12:00 AM Ordering Location: [facility] - Received: 11/05/2023 01:56 PM DermPath Lab Pathologist: González Hilliard MD Specimen: Skin, right forearm 4:23 PM CDT DERMATOPATHOLOGY LABORATORY Final Diagnosis Specimen A. 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 The specimen consists of a shave biopsy measuring 69t24r4 mm. Jar 0. 4:23 PM CDT DERMATOPATHOLOGY LABORATORY Microscopic Description Specimen A. SKIN, right forearm: The epidermis shows parakeratosis, full thickness disorderly maturation of keratinocytes, mitoses at different levels, and dyskeratotic cells. There is focal parakeratosis. The lower half of the epidermis shows disorderly maturation of keratinocytes with nuclear pleomorphism. 4:23 PM CDT DERMATOPATHOLOGY LABORATORY Disclaimer An external and internal positive and negative controls are appropriate for the histochemical, immunohistochemical and immunofluorescence stain(s) in this case (if any), except where stated explicitly. The performance characteristics of the stain(s) cited in this report were developed and its performance characteristic determined by the Dermatopathology Laboratory at [facility], directed by Dr. Abraham Hilliard. These tests need not be, and therefore are not, approved by the [place] Food and Drug Administration. The tests are used for clinical purposes. Billing Codes Specimen Charges Stain Charges 62969 1 4:23 PM CDT DERMATOPATHOLOGY LABORATORY Embedded Images 4:23 PM CDT DERMATOPATHOLOGY LABORATORY Pathology/Cytolog y TISSUE SPECIMEN FROM SKIN / Unknown 11/04/2023 11/05/2023 1:56 PM CDT us Trista Donis MD LAB - PATHOLOGY/CYTOLOGY ORDERAB LES Final Result DERMATOPATHOLOGY LABORATORY [facility] - Department of Dermatology [address] [phone] documented in this encounter Visit Diagnoses Diagnosis Neoplasm of uncertain behavior of skin documented in this encounter
--- OUTSIDE RECORDS SUMMARY | 2024-11-24 13:59 | XMS_ITS | Referral Summary ---
Author Organization [facility] [place] [address] Address [address] [place] [address] Care Team Providers Care Homemaking Rehabilitation Consultant Name Role Phone Ralph Huynh DO Primary Care Provide r Allergies Active Allergy Reactions Criticality Noted Date Comments Penicillins Rash Medium Sulfa (Sulfonamide Antibiotics) Rash Medium Medications atorvastatin (LIPITOR) 10 mg tablet take 1 tablet (10MG) by oral route every day 0 2 Active Additional Information Patient taking differently:10 mgoral Nightly, Reported on 11/13/2022 reed mdb-wlj-K9-Zn-co p-man-bor (CITRACAL PLUS MAGNESIUM) 250-40-125 mg-mg-unit tablet [...] Diagnosed Date Coronary artery disease invo lving [place] coronary artery of [place] heart without angina pectoris 07/20/2018 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 Social History Tobacco Use Types Packs/Day Years [...] on file 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 Gender Identity Not on file Sexual Orientation Not on file Last Filed Vital Signs Vital Sign Reading [...] 11/19/2023 9:25 AM CDT Plan of Treatment Not on file Medical Devices Implanted Type Area Order Entry Technician Device Identifier Shelf Expiration Date Model / Serial / Lot [employer]/C R Bard Bard Marlex 6x3in Monofilament Gold Standard Flat Sheet Groin [id number] - [id number] Implanted:Qty: 1 on 03/03/2022 by Krishna Isabel MD at [facility] [employer]/C [facility] [id number] 05/19/2026 [id number] / / [id number] [place] [address] [place] [address] [employer] Care Teams Homemaking Rehabilitation Consultant Relationship Specialty Start Date End Date Ralph Huynh DO [address] [place], [place] [phone] PCP - General Family Medicine 09/25/20
--- OUTSIDE RECORDS SUMMARY | 2024-11-24 13:59 | XMS_ITS | Clinical Summary ---
Author Organization [facility] Address [address] [facility] [place] [address] Care Team Providers Care Wood Floor Refinisher Name Role Phone Unavailable Primary Care Provider Unavailabl e Source Comments [facility],non-owned Affiliates and Associated Physician Practices is amultiple site organization consisting of ambulatory clinics and hospital sitesin [place], [place], [place] and [place]. This disclosure is being madepursuant to the Care Everywhere program and may not contain all information available regarding this patient. Last updated [email or web address] Social History Tobacco Use Types Packs/Day Years Used Date Smoking Tobacco: Never Assessed Sex and Gender Information Value Date Recorded Sex Assigned at Not on file Legal Sex Male 3:26 PM CDT Gender Identity Not on file Sexual Orientation Not on file Plan of Treatment Health Maintenance Due Date Last Done Comments MEDICARE AWV 12 MONTHS 1935 DTAP/TDAP/TD VACCINES (1 - Tdap) 1956 PNEUMOCOCCAL VACCINE 50+ (1 of 1 - PCV) 09/28/1987 ZOSTER VACCINE (1 of 2) 09/28/1987 Respiratory Syncytial Virus (RSV) Vaccine Pt: or over 60 yrs (1 - 1-dose 75+ series) 2012 COVID-19 VACCINE ( - 2023-2 5 season) 2024 DEPRESSION SCREENING 06/22/2024 INFLUENZA VACCINE (Season Ended) 2025 HEPATITIS B VACCINE Aged Out No longe r eligible based on patient's age to complete this topic HIB VACCINE Aged Out No longer eligi ble based on patient's age to complete this topic HPV VACCINE Aged Out No longer eligi ble based on patient's age to complete this topic MENINGOCOCCAL (Group B) VACC INE SHARED DECISION-MAKING Aged Out No longer eligibl e based on patient's age to complete this topic MENINGOCOCCAL GROUPS A/C/Y/W VACCINE Aged Out No longer eligible b ased on patient's age to complete this topic Insurance [facility] MEDICARE [employer] SELF PAY NO INSURANCE Member Subscriber Plan / Payer (Ef fective for All Dates) Name:Miguel Linda Member ID:Not on file Relation to Subscriber:Not on file Name:MIGUEL LINDA Subscriber ID:Not on file (Home) Address: [address] [place] [address] Payer ID:Not on file Group ID:Not on file Type:Self Pay Address: [place], [place]
--- OUTSIDE RECORDS SUMMARY | 2024-11-24 13:59 | XMS_ITS | Clinical Summary ---
Author Organization [facility] Address [address] 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
--- OUTSIDE RECORDS SUMMARY | 2024-11-24 13:59 | XMS_ITS | Encounter Summary ---
Author Organization [facility] Address [address] [place] [address] Care Team Providers Care Shellac Polisher Name Role Phone Unavailable Primary Care Provider Unavailabl e Encounter Details Date Type Department Care Team (Late st Contact Info) Description 04/16/2023 Lab Requisition [facility] - DermPath Lab [address] [place] [id number] Trista Donis MD [address] [place] [address] Neoplasm of uncertain behavior of skin [...] Priority Date/Time Associated Diagnosis Comments DERMATOPATHOLOGY Routine 04/16/2023 3:33 AM CDT Neoplasm of uncertain behavior of skin documented in this encounter Results * DERMATOPATHOLOGY (04/16/2023 3:33 AM CDT) Case Report Dermatopathology Report Case: [id number] Authorizing Provider: Trista Donis MD Collected: 04/16/2023 03:33 AM Ordering Location: [facility] Lab Received: 04/17/2023 02:21 PM Pathologist: González Hilliard MD Specimen: Skin, right vertex 5:58 PM CDT DERMATOPATHOLOGY LABORATORY Final Diagnosis Specimen A. 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 The specimen consists of a shave biopsy measuring 6x7x2 mm. Jar 0. 3 5:58 PM CDT DERMATOPATHOLOGY LABORATORY Microscopic Description Specimen A. SKIN, right vertex: There is a cellular, dermal based tumor comprised of spindle, oval, and polygonal cells with pleomorphic and polymorphic nuclei. Multinucleated giant cells and mitotic figures are present. The tumor cells are reactive with CD10 and show scattered reactivity with CD68. They are non-reactive with P63, SOX-10, Desmin, ERG, and CD34 with positive internal controls. 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 On superficial biopsy, these two neoplasms have nearly identical histopathological features with the main distinction based on extent of tumor involvement. Clinical correlation is recommended. 3 5:58 PM CDT DERMATOPATHOLOGY LABORATORY Disclaimer An external and internal positive and negative controls are appropriate for the histochemical, immunohistochemical and immunofluorescence stain(s) in this case (if any), except where stated explicitly. The performance characteristics of the stain(s) cited in this report were developed and its performance characteristic determined by the Dermatopathology Laboratory at [facility], directed by Dr. Abraham Hilliard. These tests need not be, and therefore are not, approved by the [place] Food and Drug Administration. The tests are used for clinical purposes. Billing Codes Specimen Charges Stain Charges 88116 1 [id number] [id number] [id number] 37609 1 1 1 1 1 1 1 3 5:58 PM CDT DERMATOPATHOLOGY LABORATORY Embedded Images 3 5:58 PM CDT DERMATOPATHOLOGY LABORATORY Pathology/Cytolo gy TISSUE SPECIMEN FROM SKIN / Unknown 04/16/2023 3:33 AM CDT 04/17/2023 2:21 PM CDT us Trista Donis MD LAB - PATHOLOGY/CYTOLOGY ORDERAB LES Final Result DERMATOPATHOLOGY LABORATORY [facility] - Department of Dermatology [facility] [address] [place] [address], [address] [phone] documented in this encounter Visit Diagnoses Diagnosis Neoplasm of uncertain behavior of skin documented in this encounter
== END 2024-11-24 13:20 | disposition home or self-care (01) ==
PROVIDERS: PCP Student in an Organized Health Care Education/Training Program; Visit Provider Urology
DX: C61 Malignant neoplasm of prostate (principal); Z96.89 Presence of other specified functional implants
CPT/HCPCS: 78815; A9596